=== PATIENT | female | born 1995 | race Caucasian/White ===

== ENCOUNTER → 2018-08-02 | Outpatient (CLI) | payer SELFPAY ==
[2018-08-05 10:06] LABS: CHLAMYDIA TRACHOMATIS, NAA Negative (Negative); NEISSERIA GONORRHOEAE, NAA Negative (Negative)
== END | disposition home or self-care (01) ==
LOC: LAB SHORT 11:00 → LAB 11:00
PROVIDERS: Family Medicine
DX: N92.6 Irregular menstruation, unspecified (principal); N92.0 Excessive and frequent menstruation with regular cycle
CPT/HCPCS: 87086; 87491; 87591

== ENCOUNTER 2018-10-13 16:49 | Emergency (ER) | payer BC ==
[~2018-10-13] VITALS: Ht 147.3 cm; Wt 46.3 kg
[2018-10-13] MEDS ORDERED: ESCI20 PO (17:13)
[2018-10-13 17:31] LABS: BASOPHILS ABSOLUTE AUTO 0.08 K/mm3 (0.00-0.23); BASOPHILS PERCENT AUTO 1 % (0-2); EOSINOPHILS ABSOLUTE AUTO 0.01 K/mm3 (0.00-0.68); EOSINOPHILS PERCENT AUTO 0 % (0-6); Hemoglobin 14.6 g/dL (11.5-16.0); IMMATURE GRAN ABSOLUTE AUTO 0.06 K/mm3 (0.00-0.10); IMMATURE GRAN PERCENT AUTO 0 % (0-1); LYMPHOCYTES ABSOLUTE AUTO 2.34 K/mm3 (0.84-5.20); LYMPHOCYTES PERCENT AUTO 17 % (21-46); MONOCYTES ABSOLUTE AUTO 0.61 K/mm3 (0.16-1.47); MONOCYTES PERCENT AUTO 4 % (4-13); Mean Corpuscular HGB 28.3 pg (26.0-34.0); Mean Corpuscular Volume 84 fL (80-100); Mean Platelet Volume 10.3 fL (9.1-12.4); NEUTROPHILS ABSOLUTE AUTO 10.93 K/mm3 (1.96-9.15); NEUTROPHILS PERCENT AUTO 78 % (41-73); Platelet Count 265 K/mm3 (150-400); RDW Coefficient Variation 12.1 % (11.7-14.2); RDW Standard Deviation 36.7 fL (35.1-46.3); Red Blood Cell Count 5.15 M/mm3 (3.80-5.20); White Blood Cell Count 14.03 K/mm3 (4.00-11.30)
[2018-10-13 17:49] LABS: Alanine Aminotransfer (ALT/SGP 25 U/L (12-78); Albumin, Blood 3.9 g/dL (3.4-5.0); Albumin/Globulin Ratio 1.2 (0.8-1.8); Alk Phos 58 U/L (50-136); Anion Gap 8 mmol/L (6-16); Aspartate Aminotrans (AST/SGOT 16 U/L (12-37); Bilirubin, Total 0.6 mg/dL (0.1-1.0); Blood Urea Nitrogen 9 mg/dL (8-24); CO2, Blood 26 mmol/L (21-32); Calcium, Blood 9.1 mg/dL (8.5-10.1); Chloride, Blood 102 mmol/L (98-108); Globulin, Blood 3.2 g/dL (2.2-4.0); Glomerular Filtration Rate >60 (60-); Glucose, Blood 88 mg/dL (70-99); Potassium, Blood 3.3 mmol/L (3.5-5.5); Sodium, Blood 136 mmol/L (136-145); Total Protein, Blood 7.1 g/dL (6.4-8.2)
[2018-10-13] MEDS ORDERED: ONDA4ODT MM (19:02)
== END 2018-10-13 19:17 | disposition home or self-care (01) ==
LOC: ER 16:49
PROVIDERS: Physician Assistant
DX: R11.2 Nausea with vomiting, unspecified (principal); Z88.8 Allergy status to other drugs, medicaments and biological substances; Z88.5 Allergy status to narcotic agent; Z79.899 Other long term (current) drug therapy; F17.200 Nicotine dependence, unspecified, uncomplicated
CPT/HCPCS: 36415; 80053; 83690; 85025; 96374; 99284-25; J2405

== ENCOUNTER 2018-10-28 19:46 | Emergency (ER) | payer BC ==
[~2018-10-28] VITALS: Ht 147.3 cm; Wt 45.4 kg
[~2018-10-28 19:46] MED LIST: ESCI20 PO; ONDA4ODT MM
[2018-10-28 20:46] LABS: Source, Urine Clean Catch
[2018-10-28 20:49] LABS: Bilirubin, Urine Neg (Neg); Blood, Urine Neg (Neg); Glucose Qualitative, Urine Neg (Neg); Ketones, Urine 1+ (Neg); Leukocyte Esterase, Urine 2+ (Neg); Nitrite, Urine Neg (Neg); Protein, Urine Neg (Neg); Specific Gravity, Urine 1.025 (1.003-1.022); Urobilinogen, Urine NORM (Normal)
[2018-10-28 20:54] LABS: Appearance, Urine Clear (Clear); Color, Urine Yellow (P-Yellow); Red Blood Cells, Urine 0-2 /hpf (0-2)
[2018-10-28 20:55] LABS: Bacteria Many /hpf; Mucus Light (0-Heavy); Squamous Epithelial Cells Few /hpf (Few)
[2018-10-28 21:25] LABS: BASOPHILS ABSOLUTE AUTO 0.08 K/mm3 (0.00-0.23); BASOPHILS PERCENT AUTO 1 % (0-2); EOSINOPHILS ABSOLUTE AUTO 0.08 K/mm3 (0.00-0.68); EOSINOPHILS PERCENT AUTO 1 % (0-6); Hematocrit 39.1 % (33.0-51.0); Hemoglobin 13.3 g/dL (11.5-16.0); IMMATURE GRAN ABSOLUTE AUTO 0.05 K/mm3 (0.00-0.10); IMMATURE GRAN PERCENT AUTO 0 % (0-1); LYMPHOCYTES PERCENT AUTO 25 % (21-46); MONOCYTES ABSOLUTE AUTO 0.89 K/mm3 (0.16-1.47); MONOCYTES PERCENT AUTO 6 % (4-13); Mean Corpuscular HGB 28.3 pg (26.0-34.0); Mean Corpuscular Volume 83 fL (80-100); Mean Platelet Volume 10.2 fL (9.1-12.4); NEUTROPHILS PERCENT AUTO 67 % (41-73); Platelet Count 267 K/mm3 (150-400); RDW Standard Deviation 36.5 fL (35.1-46.3)
[2018-10-28 21:42] LABS: Alanine Aminotransfer (ALT/SGP 19 U/L (12-78); Albumin, Blood 3.5 g/dL (3.4-5.0); Albumin/Globulin Ratio 1.1 (0.8-1.8); Alk Phos 61 U/L (50-136); Anion Gap 8 mmol/L (6-16); Aspartate Aminotrans (AST/SGOT 8 U/L (12-37); Bilirubin, Total 0.3 mg/dL (0.1-1.0); Blood Urea Nitrogen 8 mg/dL (8-24); Bun/Creatinine Ratio 17.2 (12.0-20.0); CO2, Blood 27 mmol/L (21-32); Chloride, Blood 104 mmol/L (98-108); Creatinine, Blood 0.47 mg/dL (0.40-1.00); Globulin, Blood 3.3 g/dL (2.2-4.0); Glomerular Filtration Rate >60 (60-); Glucose, Blood 91 mg/dL (70-99); Potassium, Blood 3.4 mmol/L (3.5-5.5); Sodium, Blood 139 mmol/L (136-145); Total Protein, Blood 6.8 g/dL (6.4-8.2)
[2018-10-28] MEDS ORDERED: ONDA4ODT MM (22:26)
[2018-10-28] MEDS ORDERED: CEPH500 PO (22:26)
== END 2018-10-28 22:54 | disposition home or self-care (01) ==
LOC: ER 19:46
PROVIDERS: Emergency Medicine
DX: O20.0 Threatened abortion (principal); O23.41 Unspecified infection of urinary tract in pregnancy, first trimester; O99.331 Smoking (tobacco) complicating pregnancy, first trimester; F17.200 Nicotine dependence, unspecified, uncomplicated; O99.111 Other diseases of the blood and blood-forming organs and certain disorders involving the immune mechanism complicating pregnancy, first trimester; D72.829 Elevated white blood cell count, unspecified; Z88.5 Allergy status to narcotic agent; Z88.8 Allergy status to other drugs, medicaments and biological substances; Z91.018 Allergy to other foods; Z3A.01 Less than 8 weeks gestation of pregnancy
CPT/HCPCS: 76801; 80053; 81001; 81025; 83690; 84702; 85025; 86900; 86901; 87086; 99284-25

== ENCOUNTER 2018-10-31 20:54 | Emergency (ER) | payer BC ==
[~2018-10-31] VITALS: Ht 147.3 cm; Wt 45.4 kg
[~2018-10-31 20:54] MED LIST changes: +CEPH500 PO
== END 2018-10-31 22:15 | disposition home or self-care (01) ==
LOC: ER 20:54
DX: O20.0 Threatened abortion (principal); J45.909 Unspecified asthma, uncomplicated; F17.200 Nicotine dependence, unspecified, uncomplicated; Z3A.01 Less than 8 weeks gestation of pregnancy
CPT/HCPCS: 36415; 84702; 99283

== ENCOUNTER 2018-11-13 18:42 | Observation (INO) | payer BC ==
[~2018-11-13] VITALS: Ht 147.3 cm; Wt 40.6 kg
[2018-11-13 19:54] LABS: BASOPHILS ABSOLUTE AUTO 0.02 K/mm3 (0.00-0.23); BASOPHILS PERCENT AUTO 0 % (0-2); EOSINOPHILS ABSOLUTE AUTO 0.01 K/mm3 (0.00-0.68); EOSINOPHILS PERCENT AUTO 0 % (0-6); Hematocrit 38.6 % (33.0-51.0); Hemoglobin 13.5 g/dL (11.5-16.0); IMMATURE GRAN ABSOLUTE AUTO 0.08 K/mm3 (0.00-0.10); IMMATURE GRAN PERCENT AUTO 0 % (0-1); LYMPHOCYTES ABSOLUTE AUTO 3.04 K/mm3 (0.84-5.20); LYMPHOCYTES PERCENT AUTO 17 % (21-46); MONOCYTES ABSOLUTE AUTO 1.28 K/mm3 (0.16-1.47); MONOCYTES PERCENT AUTO 7 % (4-13); Mean Corpuscular Volume 80 fL (80-100); Mean Platelet Volume 10.1 fL (9.1-12.4); NEUTROPHILS ABSOLUTE AUTO 13.72 K/mm3 (1.96-9.15); NEUTROPHILS PERCENT AUTO 76 % (41-73); Platelet Count 287 K/mm3 (150-400); RDW Standard Deviation 34.7 fL (35.1-46.3); Red Blood Cell Count 4.83 M/mm3 (3.80-5.20); White Blood Cell Count 18.15 K/mm3 (4.00-11.30)
[2018-11-13 20:20] LABS: Alanine Aminotransfer (ALT/SGP 22 U/L (12-78); Albumin, Blood 3.6 g/dL (3.4-5.0); Alk Phos 49 U/L (50-136); Anion Gap 12 mmol/L (6-16); Aspartate Aminotrans (AST/SGOT 16 U/L (12-37); Bilirubin, Total 0.6 mg/dL (0.1-1.0); Blood Urea Nitrogen 11 mg/dL (8-24); Bun/Creatinine Ratio 24.1 (12.0-20.0); CO2, Blood 20 mmol/L (21-32); Calcium, Blood 9.4 mg/dL (8.5-10.1); Chloride, Blood 100 mmol/L (98-108); Creatinine, Blood 0.46 mg/dL (0.40-1.00); Globulin, Blood 3.6 g/dL (2.2-4.0); Glomerular Filtration Rate >60 (60-); Glucose, Blood 91 mg/dL (70-99); Potassium, Blood 3.5 mmol/L (3.5-5.5); Sodium, Blood 132 mmol/L (136-145); Total Protein, Blood 7.2 g/dL (6.4-8.2)
[2018-11-13 20:44] LABS: Beta HCG, Quantitative, Serum 106614 mIU/mL (0-3)
[2018-11-13 23:39] LABS: Source, Urine Clean Catch
[2018-11-13 23:52] LABS: Bilirubin, Urine Neg (Neg); Blood, Urine 1+ (Neg); Glucose Qualitative, Urine Neg (Neg); Ketones, Urine 4+ (Neg); Leukocyte Esterase, Urine 1+ (Neg); Nitrite, Urine Neg (Neg); Protein, Urine 2+ (Neg); Specific Gravity, Urine 1.025 (1.003-1.022); Urobilinogen, Urine 1+ (Normal); pH, Urine 6.5 (5.0-8.0)
[2018-11-14 00:07] LABS: Appearance, Urine Hazy (Clear); Color, Urine Amber (P-Yellow)
[2018-11-14 00:08] LABS: Amorphous Light ({null, 0-Heavy}); Bacteria Many /hpf; Mucus Light ({null, 0-Heavy}); Red Blood Cells, Urine 0-2 /hpf (0-2); Squamous Epithelial Cells Mod /hpf (Few)
--- NOTE | 2018-11-14 07:32 | NUR ---
SHIFT SUMMARY NEW ADMIT THIS AM. NAUSEA CONTROLLED WITH X1 6.25MG IV PHENERGAN, NO EMESIS SINCE ADMISSION TO FLOOR. INDEPENDENT IN ROOM. TOLERATING CLEAR LIQUIDS. PT RESTING WELL THIS AM. DR Andiry VERA IN TO SEE PT THIS AM. NEW ORDERS OBTAINED. SIGNIFICANT OTHER AT BEDSIDE. PT ORIENTED TO ROOM + CALL LIGHT USE. RESTING AT THIS TIME, MITA, CALL LIGHT IN REACH. REPORT TO DAY SHIFT RN.
--- NOTE | 2018-11-14 18:28 | NUR ---
ASSUMED CARE OF PATIENT AT APPROX 1630. PATIENT TOLERATED TOAST W/O N/V. SLEEPING AT THIS TIME. SPOUSE IN ROOM.
[2018-11-15 04:44] LABS: BASOPHILS ABSOLUTE AUTO 0.04 K/mm3 (0.00-0.23); BASOPHILS PERCENT AUTO 0 % (0-2); EOSINOPHILS ABSOLUTE AUTO 0.09 K/mm3 (0.00-0.68); EOSINOPHILS PERCENT AUTO 1 % (0-6); Hematocrit 30.9 % (33.0-51.0); Hemoglobin 10.5 g/dL (11.5-16.0); IMMATURE GRAN ABSOLUTE AUTO 0.04 K/mm3 (0.00-0.10); IMMATURE GRAN PERCENT AUTO 0 % (0-1); LYMPHOCYTES ABSOLUTE AUTO 4.16 K/mm3 (0.84-5.20); LYMPHOCYTES PERCENT AUTO 36 % (21-46); MONOCYTES ABSOLUTE AUTO 0.84 K/mm3 (0.16-1.47); MONOCYTES PERCENT AUTO 7 % (4-13); Mean Corpuscular HGB 28.2 pg (26.0-34.0); Mean Platelet Volume 10.2 fL (9.1-12.4); NEUTROPHILS ABSOLUTE AUTO 6.44 K/mm3 (1.96-9.15); NEUTROPHILS PERCENT AUTO 56 % (41-73); Platelet Count 183 K/mm3 (150-400); RDW Coefficient Variation 12.2 % (11.7-14.2); RDW Standard Deviation 37.2 fL (35.1-46.3); Red Blood Cell Count 3.73 M/mm3 (3.80-5.20); White Blood Cell Count 11.61 K/mm3 (4.00-11.30)
[2018-11-15 04:47] LABS: Mean Corpuscular Volume 83 fL (80-100)
[2018-11-15 05:08] LABS: Alanine Aminotransfer (ALT/SGP 17 U/L (12-78); Albumin, Blood 2.5 g/dL (3.4-5.0); Alk Phos 42 U/L (50-136); Aspartate Aminotrans (AST/SGOT 10 U/L (12-37); Bilirubin, Total 0.2 mg/dL (0.1-1.0); Blood Urea Nitrogen 7 mg/dL (8-24); Bun/Creatinine Ratio 15.2 (12.0-20.0); CO2, Blood 22 mmol/L (21-32); Calcium, Blood 8.1 mg/dL (8.5-10.1); Chloride, Blood 111 mmol/L (98-108); Creatinine, Blood 0.46 mg/dL (0.40-1.00); Globulin, Blood 2.5 g/dL (2.2-4.0); Glomerular Filtration Rate >60 (60-); Glucose, Blood 81 mg/dL (70-99); Potassium, Blood 3.5 mmol/L (3.5-5.5)
[2018-11-15 05:17] LABS: Anion Gap 9 mmol/L (6-16); Sodium, Blood 142 mmol/L (136-145)
--- NOTE | 2018-11-15 06:45 | NUR ---
SUMMARY: ADMIT DAY [address] JOSI VERA. VSS, AFEBRILE. PT SHOWERED AND TOLERATED REG DIET THIS SHIFT AND DESPITE RN EDUCATION WENT OUT TO SMOKE CIGGARETTE WITH SPOUSE. PT BECAME MINIMALLY NAUSEATED AFTER WARDS AND NAUSEA WAS WELL CONTROLLED WITH 12.5MG PHENERGAN X1. PT SLEPT WELL, VOIDING AND CONTINUE IV FLUID INFUSION. ANTICIPATE DC HOME LATER THIS DAY.
[2018-11-15] MEDS ORDERED: OMEP20ER PO (12:03)
[2018-11-15] MEDS ORDERED: Promethazine12.5 M1 PO (13:29)
--- NOTE | 2018-11-15 14:50 | NUR ---
PT HAS DENIED ANY NAUSEA, REPORTS TOLERATING SOME BITES OF HOT DOG AND CEREAL AND SOME FLUIDS, AMBULATED OUTSIDE TO SMOKE, DC'D HOME ORDERED, DC INSTRUCTIONS GIVEN, VERBALIZED UNDERSTANDING, SMOKING CESSATION INFO GIVEN.
== END 2018-11-15 14:50 | disposition home or self-care (01) ==
LOC: ER 18:42 → SURS 18:43
PROVIDERS: Physician Assistant; ADMIT Obstetrics & Gynecology
DX: O21.0 Mild hyperemesis gravidarum (principal); O99.331 Smoking (tobacco) complicating pregnancy, first trimester; F17.200 Nicotine dependence, unspecified, uncomplicated; Z88.5 Allergy status to narcotic agent; Z91.018 Allergy to other foods; Z3A.09 9 weeks gestation of pregnancy
CPT/HCPCS: 36415; 80053; 81001; 83690; 84702; 85025; 87086; 96361; 96365; 96375; 96376; 99284; C9113; G0378; J0696; J2405; J2550; J3480; J7030

== ENCOUNTER → 2018-11-19 | Outpatient (CLI) | payer BC ==
[~2018-11-19] MED LIST changes: +Lactated Ringe500 M1 IV; +OMEP20ER PO; +Ondansetron Odt8 MG PO; +Promethazine12.5 M1 PO; +[UNRECOGNIZED DRUG - OTHER] PO
[2018-11-19 13:08] LABS: Source, Urine Clean Catch
[2018-11-19 13:20] LABS: Bilirubin, Urine Neg (Neg); Blood, Urine Neg (Neg); Glucose Qualitative, Urine Neg (Neg); Ketones, Urine Neg (Neg); Leukocyte Esterase, Urine Neg (Neg); Nitrite, Urine Neg (Neg); Protein, Urine Neg (Neg); Specific Gravity, Urine 1.015 (1.003-1.022); Urobilinogen, Urine NORM (Normal)
[2018-11-19 13:26] LABS: Appearance, Urine Clear (Clear); Color, Urine Yellow (P-Yellow)
== END | disposition home or self-care (01) ==
LOC: LAB 10:00 → LAB SHORT 10:00
PROVIDERS: Advanced Practice Midwife
DX: Z34.00 Encounter for supervision of normal first pregnancy, unspecified trimester (principal)
CPT/HCPCS: 81003; 87086

== ENCOUNTER → 2018-11-27 | Outpatient (CLI) | payer BC ==
[2018-11-30 04:06] LABS: CHLAMYDIA TRACHOMATIS, NAA Negative (Negative); NEISSERIA GONORRHOEAE, NAA Negative (Negative)
== END ==
LOC: LAB 13:46 → LAB SHORT 13:46
PROVIDERS: Registered Nurse Community Health
DX: Z11.3 Encounter for screening for infections with a predominantly sexual mode of transmission (principal)
CPT/HCPCS: 87491; 87591

== ENCOUNTER 2018-12-04 22:02 | Emergency (ER) | payer BC ==
[~2018-12-04] VITALS: Ht 149.9 cm; Wt 41.7 kg
[~2018-12-04 22:02] MED LIST changes: -Lactated Ringe500 M1 IV; -Ondansetron Odt8 MG PO; -[UNRECOGNIZED DRUG - OTHER] PO
[2018-12-04 22:34] LABS: BASOPHILS ABSOLUTE AUTO 0.02 K/mm3 (0.00-0.23); BASOPHILS PERCENT AUTO 0 % (0-2); EOSINOPHILS PERCENT AUTO 0 % (0-6); Hematocrit 38.6 % (33.0-51.0); Hemoglobin 13.4 g/dL (11.5-16.0); IMMATURE GRAN ABSOLUTE AUTO 0.04 K/mm3 (0.00-0.10); IMMATURE GRAN PERCENT AUTO 0 % (0-1); LYMPHOCYTES ABSOLUTE AUTO 1.65 K/mm3 (0.84-5.20); LYMPHOCYTES PERCENT AUTO 13 % (21-46); MONOCYTES ABSOLUTE AUTO 0.48 K/mm3 (0.16-1.47); MONOCYTES PERCENT AUTO 4 % (4-13); Mean Corpuscular HGB 28.1 pg (26.0-34.0); Mean Corpuscular HGB Conc 34.7 g/dL (31.5-36.5); Mean Corpuscular Volume 81 fL (80-100); Mean Platelet Volume 10.2 fL (9.1-12.4); NEUTROPHILS ABSOLUTE AUTO 10.18 K/mm3 (1.96-9.15); NEUTROPHILS PERCENT AUTO 82 % (41-73); Platelet Count 265 K/mm3 (150-400); RDW Coefficient Variation 12.2 % (11.7-14.2); RDW Standard Deviation 36.5 fL (35.1-46.3); Red Blood Cell Count 4.77 M/mm3 (3.80-5.20); White Blood Cell Count 12.37 K/mm3 (4.00-11.30)
[2018-12-04 22:53] LABS: Alanine Aminotransfer (ALT/SGP 23 U/L (12-78); Albumin, Blood 3.7 g/dL (3.4-5.0); Albumin/Globulin Ratio 0.9 (0.8-1.8); Alk Phos 54 U/L (50-136); Anion Gap 15 mmol/L (6-16); Aspartate Aminotrans (AST/SGOT 20 U/L (12-37); Bilirubin, Total 0.7 mg/dL (0.1-1.0); Blood Urea Nitrogen 8 mg/dL (8-24); Bun/Creatinine Ratio 17.2 (12.0-20.0); CO2, Blood 17 mmol/L (21-32); Calcium, Blood 9.8 mg/dL (8.5-10.1); Chloride, Blood 103 mmol/L (98-108); Creatinine, Blood 0.47 mg/dL (0.40-1.00); Globulin, Blood 3.9 g/dL (2.2-4.0); Glomerular Filtration Rate >60 (60-); Glucose, Blood 87 mg/dL (70-99); Potassium, Blood 3.7 mmol/L (3.5-5.5); Sodium, Blood 135 mmol/L (136-145); Total Protein, Blood 7.6 g/dL (6.4-8.2)
[2018-12-05] MEDS ORDERED: Ondansetron Odt8 MG PO (02:02)
== END 2018-12-05 03:06 | disposition home or self-care (01) ==
LOC: ER 22:02
PROVIDERS: Emergency Medicine
DX: O21.0 Mild hyperemesis gravidarum (principal); O99.331 Smoking (tobacco) complicating pregnancy, first trimester; F17.200 Nicotine dependence, unspecified, uncomplicated; Z88.5 Allergy status to narcotic agent; Z91.018 Allergy to other foods; Z3A.10 10 weeks gestation of pregnancy
CPT/HCPCS: 36415; 80053; 85025; 96361; 96374; 99283; J2405; J7030

== ENCOUNTER 2019-01-01 00:03 | Day surgery (SDC) | payer BC ==
[~2019-01-01 00:03] MED LIST changes: +Ondansetron Odt8 MG PO
[2019-01-01] MEDS ORDERED: [UNRECOGNIZED DRUG - OTHER] PO (10:13)
[2019-01-01] MEDS ORDERED: Lactated Ringe500 M1 IV (10:15)
--- NOTE | 2019-01-01 12:02 | NUR ---
PT REFUSED FULL BAG OF LR'S, ONLY RECEIVED APPROX 800 ML.
== END 2019-01-01 23:55 | disposition home or self-care (01) ==
LOC: ATC 00:03
DX: O21.0 Mild hyperemesis gravidarum (principal); Z88.5 Allergy status to narcotic agent; Z88.8 Allergy status to other drugs, medicaments and biological substances
CPT/HCPCS: 96361; 96365; 96375; J2405; J3411; J3475; J7042; J7120

== ENCOUNTER 2019-01-12 13:49 | Day surgery (SDC) | payer BC ==
[~2019-01-12 13:49] MED LIST changes: +Lactated Ringe500 M1 IV; +[UNRECOGNIZED DRUG - OTHER] PO
== END 2019-01-12 15:24 | disposition home or self-care (01) ==
LOC: ATC 13:49
DX: O21.0 Mild hyperemesis gravidarum (principal); O99.330 Smoking (tobacco) complicating pregnancy, unspecified trimester; O99.320 Drug use complicating pregnancy, unspecified trimester; O99.340 Other mental disorders complicating pregnancy, unspecified trimester; O99.350 Diseases of the nervous system complicating pregnancy, unspecified trimester; O99.619 Diseases of the digestive system complicating pregnancy, unspecified trimester; O99.519 Diseases of the respiratory system complicating pregnancy, unspecified trimester; O99.89 Other specified diseases and conditions complicating pregnancy, childbirth and the puerperium; F17.210 Nicotine dependence, cigarettes, uncomplicated; F12.90 Cannabis use, unspecified, uncomplicated; F41.1 Generalized anxiety disorder; F98.8 Other specified behavioral and emotional disorders with onset usually occurring in childhood and adolescence; K21.9 Gastro-esophageal reflux disease without esophagitis; M54.9 Dorsalgia, unspecified; J45.909 Unspecified asthma, uncomplicated; G43.909 Migraine, unspecified, not intractable, without status migrainosus; F32.9 Major depressive disorder, single episode, unspecified; M54.5 Low back pain; Z79.899 Other long term (current) drug therapy; Z88.5 Allergy status to narcotic agent; Z88.8 Allergy status to other drugs, medicaments and biological substances; Z91.018 Allergy to other foods; Z3A.00 Weeks of gestation of pregnancy not specified
CPT/HCPCS: J2405; J7120

== ENCOUNTER 2019-01-28 00:13 | Day surgery (SDC) | payer BC | END 2019-01-28 17:02 | disposition home or self-care (01) | LOC: ATC 00:13 | DX: O21.0 Mild hyperemesis gravidarum (principal); O99.320 Drug use complicating pregnancy, unspecified trimester; O99.330 Smoking (tobacco) complicating pregnancy, unspecified trimester; O99.340 Other mental disorders complicating pregnancy, unspecified trimester; O99.619 Diseases of the digestive system complicating pregnancy, unspecified trimester; O99.519 Diseases of the respiratory system complicating pregnancy, unspecified trimester; O99.89 Other specified diseases and conditions complicating pregnancy, childbirth and the puerperium; O99.350 Diseases of the nervous system complicating pregnancy, unspecified trimester; F12.20 Cannabis dependence, uncomplicated; F17.210 Nicotine dependence, cigarettes, uncomplicated; F41.1 Generalized anxiety disorder; F41.8 Other specified anxiety disorders; K21.9 Gastro-esophageal reflux disease without esophagitis; G89.29 Other chronic pain; M21.40 Flat foot [pes planus] (acquired), unspecified foot; J45.909 Unspecified asthma, uncomplicated; G43.909 Migraine, unspecified, not intractable, without status migrainosus; F98.8 Other specified behavioral and emotional disorders with onset usually occurring in childhood and adolescence; M54.5 Low back pain; Z79.899 Other long term (current) drug therapy; Z88.5 Allergy status to narcotic agent; Z91.018 Allergy to other foods | CPT/HCPCS: 96361; 96365; 96375; J2405; J3411; J3475; J7042; J7120 ==

== ENCOUNTER 2019-02-13 19:47 | Emergency (ER) | payer BC ==
[~2019-02-13] VITALS: Ht 149.9 cm; Wt 43.1 kg
[2019-02-13 20:42] LABS: BASOPHILS ABSOLUTE AUTO 0.03 K/mm3 (0.00-0.23); BASOPHILS PERCENT AUTO 0 % (0-2); EOSINOPHILS ABSOLUTE AUTO 0.07 K/mm3 (0.00-0.68); EOSINOPHILS PERCENT AUTO 1 % (0-6); Hematocrit 32.9 % (33.0-51.0); Hemoglobin 10.9 g/dL (11.5-16.0); IMMATURE GRAN ABSOLUTE AUTO 0.06 K/mm3 (0.00-0.10); IMMATURE GRAN PERCENT AUTO 1 % (0-1); LYMPHOCYTES ABSOLUTE AUTO 2.57 K/mm3 (0.84-5.20); LYMPHOCYTES PERCENT AUTO 25 % (21-46); MONOCYTES PERCENT AUTO 8 % (4-13); Mean Corpuscular HGB 28.7 pg (26.0-34.0); Mean Corpuscular HGB Conc 33.1 g/dL (31.5-36.5); Mean Corpuscular Volume 87 fL (80-100); Mean Platelet Volume 10.1 fL (9.1-12.4); NEUTROPHILS ABSOLUTE AUTO 6.89 K/mm3 (1.96-9.15); NEUTROPHILS PERCENT AUTO 66 % (41-73); Platelet Count 256 K/mm3 (150-400); RDW Coefficient Variation 13.1 % (11.7-14.2); RDW Standard Deviation 41.4 fL (35.1-46.3); White Blood Cell Count 10.42 K/mm3 (4.00-11.30)
[2019-02-13 21:04] LABS: Alanine Aminotransfer (ALT/SGP 39 U/L (12-78); Albumin, Blood 3.3 g/dL (3.4-5.0); Albumin/Globulin Ratio 0.8 (0.8-1.8); Alk Phos 57 U/L (50-136); Anion Gap 8 mmol/L (6-16); Aspartate Aminotrans (AST/SGOT 27 U/L (12-37); Bilirubin, Total 0.5 mg/dL (0.1-1.0); Blood Urea Nitrogen 8 mg/dL (8-24); Bun/Creatinine Ratio 20.8 (12.0-20.0); CO2, Blood 24 mmol/L (21-32); Chloride, Blood 102 mmol/L (98-108); Creatinine, Blood 0.39 mg/dL (0.40-1.00); Globulin, Blood 3.9 g/dL (2.2-4.0); Glomerular Filtration Rate >60 (60-); Glucose, Blood 76 mg/dL (70-99); Potassium, Blood 3.4 mmol/L (3.5-5.5); Sodium, Blood 134 mmol/L (136-145); Total Protein, Blood 7.2 g/dL (6.4-8.2)
[2019-02-13 21:18] LABS: Beta HCG, Quantitative, Serum 37912 mIU/mL (0-3)
[2019-02-13 21:47] LABS: Source, Urine Clean Catch
[2019-02-13 21:52] LABS: Appearance, Urine Hazy (Clear); Bilirubin, Urine Neg (Neg); Blood, Urine Neg (Neg); Color, Urine Yellow (P-Yellow); Glucose Qualitative, Urine Neg (Neg); Ketones, Urine 4+ (Neg); Leukocyte Esterase, Urine 3+ (Neg); Nitrite, Urine Neg (Neg); Protein, Urine 1+ (Neg); Specific Gravity, Urine 1.015 (1.003-1.022); Urobilinogen, Urine 1+ (Normal); pH, Urine 6.5 (5.0-8.0)
[2019-02-13 22:04] LABS: Bacteria Many /hpf; Red Blood Cells, Urine Not Seen /hpf (0-2); Squamous Epithelial Cells Many /hpf (Few); White Blood Cells, Urine 25-50 /hpf (0-5)
[2019-02-13] MEDS ORDERED: CEPH500 PO (22:50)
== END 2019-02-13 23:02 | disposition home or self-care (01) ==
LOC: ER 19:47
PROVIDERS: Physician Assistant
DX: O23.42 Unspecified infection of urinary tract in pregnancy, second trimester (principal); Z3A.22 22 weeks gestation of pregnancy; Z88.5 Allergy status to narcotic agent; Z91.018 Allergy to other foods; Z87.891 Personal history of nicotine dependence
CPT/HCPCS: 36415; 76815; 80053; 81001; 84702; 85025; 86900; 86901; 87086; 96365; 99284-25; J0696

== ENCOUNTER 2020-05-27 13:57 | Emergency (ER) | payer BC, OTHER ==
[~2020-05-27] VITALS: Ht 144.8 cm; Wt 52.2 kg
[2020-05-27 14:27] LABS: BASOPHILS ABSOLUTE AUTO 0.06 K/mm3 (0.00-0.23); BASOPHILS PERCENT AUTO 0 % (0-2); EOSINOPHILS ABSOLUTE AUTO 0.01 K/mm3 (0.00-0.68); EOSINOPHILS PERCENT AUTO 0 % (0-6); Hematocrit 48.8 % (33.0-51.0); Hemoglobin 16.6 g/dL (11.5-16.0); IMMATURE GRAN ABSOLUTE AUTO 0.11 K/mm3 (0.00-0.10); IMMATURE GRAN PERCENT AUTO 1 % (0-1); LYMPHOCYTES PERCENT AUTO 13 % (21-46); MONOCYTES ABSOLUTE AUTO 0.88 K/mm3 (0.16-1.47); MONOCYTES PERCENT AUTO 5 % (4-13); Mean Corpuscular HGB 28.4 pg (26.0-34.0); Mean Corpuscular Volume 84 fL (80-100); Mean Platelet Volume 10.3 fL (9.1-12.4); NEUTROPHILS ABSOLUTE AUTO 14.19 K/mm3 (1.96-9.15); NEUTROPHILS PERCENT AUTO 81 % (41-73); Platelet Count 356 K/mm3 (150-400); RDW Coefficient Variation 12.2 % (11.7-14.2); Red Blood Cell Count 5.84 M/mm3 (3.80-5.20); White Blood Cell Count 17.55 K/mm3 (4.00-11.30)
[2020-05-27 14:54] LABS: Alanine Aminotransfer (ALT/SGP 29 U/L (12-78); Albumin, Blood 4.3 g/dL (3.4-5.0); Alk Phos 73 U/L (50-136); Anion Gap 12 mmol/L (6-16); Aspartate Aminotrans (AST/SGOT 17 U/L (12-37); Bilirubin, Total 0.7 mg/dL (0.1-1.0); Blood Urea Nitrogen 9 mg/dL (8-24); Bun/Creatinine Ratio 14.7 (12.0-20.0); CO2, Blood 19 mmol/L (21-32); Calcium, Blood 9.7 mg/dL (8.5-10.1); Chloride, Blood 103 mmol/L (98-108); Creatinine, Blood 0.61 mg/dL (0.40-1.00); Globulin, Blood 4.1 g/dL (2.2-4.0); Glomerular Filtration Rate >60 (60-); Glucose, Blood 87 mg/dL (70-99); Potassium, Blood 3.5 mmol/L (3.5-5.5); Sodium, Blood 134 mmol/L (136-145); Total Protein, Blood 8.4 g/dL (6.4-8.2)
[2020-05-27 14:57] LABS: Source, Urine Clean Catch
[2020-05-27 15:00] LABS: Appearance, Urine Hazy (Clear); Bilirubin, Urine Neg (Neg); Blood, Urine 4+ (Neg); Color, Urine Yellow (P-Yellow); Glucose Qualitative, Urine Neg (Neg); Ketones, Urine 4+ (Neg); Leukocyte Esterase, Urine 2+ (Neg); Nitrite, Urine Neg (Neg); Protein, Urine 3+ (Neg); Specific Gravity, Urine 1.025 (1.003-1.022); Urobilinogen, Urine NORM (Normal)
[2020-05-27 15:17] LABS: Squamous Epithelial Cells Many /hpf (Few)
[2020-05-27 15:18] LABS: Bacteria Mod /hpf
[2020-05-27] MEDS ORDERED: EFFEXOR XR37.5 MG PO (15:31)
[2020-05-27] MEDS ORDERED: ARIPIPRAZOLE2 M1 PO (15:31)
[2020-05-27] MEDS ORDERED: LORAZEPAM0.5 MG PO (16:06)
[2020-05-27] MEDS ORDERED: PHENERGAN25 MG PR (17:14)
[2020-05-27] MEDS ORDERED: Protonix40 MG PO (17:14)
[2020-05-27] MEDS ORDERED: PROM25 PO (17:14)
[2020-05-27] MEDS ORDERED: CEFD300 PO (17:14)
== END 2020-05-27 17:36 | disposition home or self-care (01) ==
LOC: ER 13:57
PROVIDERS: Physician Assistant
DX: O23.01 Infections of kidney in pregnancy, first trimester (principal); O21.8 Other vomiting complicating pregnancy; O26.851 Spotting complicating pregnancy, first trimester; O34.81 Maternal care for other abnormalities of pelvic organs, first trimester; N83.201 Unspecified ovarian cyst, right side; O26.891 Other specified pregnancy related conditions, first trimester; D72.829 Elevated white blood cell count, unspecified; J45.909 Unspecified asthma, uncomplicated; K21.9 Gastro-esophageal reflux disease without esophagitis; Z88.5 Allergy status to narcotic agent; Z88.8 Allergy status to other drugs, medicaments and biological substances; Z91.018 Allergy to other foods; Z79.899 Other long term (current) drug therapy; Z87.891 Personal history of nicotine dependence; Z3A.01 Less than 8 weeks gestation of pregnancy
CPT/HCPCS: 36415; 76801; 76817; 80053; 81001; 81025; 83690; 84702; 84703; 85025; 86850; 86900; 86901; 87086; 96361; 96365; 96375; 96376; 99284-25; C9113; J0696; J2550; J7120

== ENCOUNTER 2020-06-07 20:16 | Emergency (ER) | payer BC, OTHER ==
[~2020-06-07] VITALS: Ht 144.8 cm; Wt 49.9 kg
[~2020-06-07 20:16] MED LIST changes: +ARIPIPRAZOLE2 M1 PO; +CEFD300 PO; +EFFEXOR XR37.5 MG PO; +LORAZEPAM0.5 MG PO; +PHENERGAN25 MG PR; +PROM25 PO; +Protonix40 MG PO
[2020-06-07 20:52] LABS: BASOPHILS ABSOLUTE AUTO 0.05 K/mm3 (0.00-0.23); BASOPHILS PERCENT AUTO 0 % (0-2); EOSINOPHILS ABSOLUTE AUTO 0.01 K/mm3 (0.00-0.68); EOSINOPHILS PERCENT AUTO 0 % (0-6); Hematocrit 43.6 % (33.0-51.0); Hemoglobin 15.1 g/dL (11.5-16.0); IMMATURE GRAN ABSOLUTE AUTO 0.07 K/mm3 (0.00-0.10); IMMATURE GRAN PERCENT AUTO 0 % (0-1); LYMPHOCYTES ABSOLUTE AUTO 1.83 K/mm3 (0.84-5.20); LYMPHOCYTES PERCENT AUTO 11 % (21-46); MONOCYTES ABSOLUTE AUTO 0.78 K/mm3 (0.16-1.47); MONOCYTES PERCENT AUTO 5 % (4-13); Mean Corpuscular HGB 28.2 pg (26.0-34.0); Mean Corpuscular HGB Conc 34.6 g/dL (31.5-36.5); Mean Corpuscular Volume 81 fL (80-100); Mean Platelet Volume 10.3 fL (9.1-12.4); NEUTROPHILS PERCENT AUTO 84 % (41-73); Platelet Count 339 K/mm3 (150-400); RDW Coefficient Variation 12.1 % (11.7-14.2); RDW Standard Deviation 35.9 fL (35.1-46.3); Red Blood Cell Count 5.36 M/mm3 (3.80-5.20); White Blood Cell Count 16.74 K/mm3 (4.00-11.30)
[2020-06-07 21:11] LABS: Alanine Aminotransfer (ALT/SGP 31 U/L (12-78); Albumin, Blood 3.7 g/dL (3.4-5.0); Alk Phos 58 U/L (50-136); Anion Gap 11 mmol/L (6-16); Aspartate Aminotrans (AST/SGOT 14 U/L (12-37); Bilirubin, Total 0.5 mg/dL (0.1-1.0); Blood Urea Nitrogen 8 mg/dL (8-24); CO2, Blood 21 mmol/L (21-32); Calcium, Blood 9.2 mg/dL (8.5-10.1); Chloride, Blood 104 mmol/L (98-108); Creatinine, Blood 0.45 mg/dL (0.40-1.00); Globulin, Blood 3.8 g/dL (2.2-4.0); Glomerular Filtration Rate >60 (60-); Glucose, Blood 85 mg/dL (70-99); Potassium, Blood 3.6 mmol/L (3.5-5.5); Sodium, Blood 136 mmol/L (136-145); Total Protein, Blood 7.5 g/dL (6.4-8.2)
[2020-06-08 02:55] LABS: Source, Urine Clean Catch
[2020-06-08 02:57] LABS: Appearance, Urine Clear (Clear); Bilirubin, Urine Neg (Neg); Blood, Urine Neg (Neg); Color, Urine Yellow (P-Yellow); Glucose Qualitative, Urine Neg (Neg); Ketones, Urine 4+ (Neg); Leukocyte Esterase, Urine 2+ (Neg); Nitrite, Urine Neg (Neg); Protein, Urine 1+ (Neg); Specific Gravity, Urine 1.025 (1.003-1.022); Urobilinogen, Urine NORM (Normal)
[2020-06-08 03:02] LABS: Red Blood Cells, Urine 0-2 /hpf (0-2)
[2020-06-08 03:03] LABS: Bacteria Many /hpf; Mucus Light (0-Heavy); Squamous Epithelial Cells Mod /hpf (Few)
[2020-06-08] MEDS ORDERED: CEFP200 PO (03:13)
== END 2020-06-08 03:24 | disposition home or self-care (01) ==
LOC: ER 20:16
PROVIDERS: Physician Assistant
DX: O23.41 Unspecified infection of urinary tract in pregnancy, first trimester (principal); O99.331 Smoking (tobacco) complicating pregnancy, first trimester; F17.200 Nicotine dependence, unspecified, uncomplicated; Z3A.01 Less than 8 weeks gestation of pregnancy; Z88.5 Allergy status to narcotic agent; Z91.018 Allergy to other foods
CPT/HCPCS: 36415; 80053; 81001; 83690; 85025; 87086; 96361; 96374; 99284; A9270; J2405; J7030

== ENCOUNTER → 2020-06-13 | Outpatient (CLI) | payer BC, OTHER ==
[~2020-06-13] MED LIST changes: +CEFP200 PO; +PRED1 PO; +PROM12.5S PR; +PROMETHAZINE12.5 M1 PO
[2020-06-13 13:51] LABS: Source, Urine Clean Catch
[2020-06-13 17:30] LABS: Bilirubin, Urine Neg (Neg); Blood, Urine Neg (Neg); Glucose Qualitative, Urine Neg (Neg); Ketones, Urine Neg (Neg); Leukocyte Esterase, Urine 1+ (Neg); Nitrite, Urine Neg (Neg); Protein, Urine Neg (Neg); Urobilinogen, Urine NORM (Normal); pH, Urine 6.5 (5.0-8.0)
[2020-06-13 18:03] LABS: Appearance, Urine Hazy (Clear); Color, Urine Pale Yellow (P-Yellow)
[2020-06-13 18:04] LABS: Bacteria Few /hpf; Mucus Light (0-Heavy); Red Blood Cells, Urine 0-2 /hpf (0-2); Squamous Epithelial Cells Few /hpf (Few); Transitional Epithelial Cells Rare /hpf (0-Rare)
== END ==
LOC: LAB UCHC 13:42 → LAB SHORT 13:42
PROVIDERS: Registered Nurse Community Health
DX: Z34.92 Encounter for supervision of normal pregnancy, unspecified, second trimester (principal); Z88.5 Allergy status to narcotic agent; Z91.018 Allergy to other foods
CPT/HCPCS: 81001; 87086

== ENCOUNTER 2020-06-19 18:37 | Emergency (ER) | payer BC, OTHER ==
[~2020-06-19] VITALS: Ht 144.8 cm; Wt 47.6 kg
[~2020-06-19 18:37] MED LIST changes: -PRED1 PO; -PROM12.5S PR; -PROMETHAZINE12.5 M1 PO
[2020-06-19 19:28] LABS: BASOPHILS ABSOLUTE AUTO 0.06 K/mm3 (0.00-0.23); BASOPHILS PERCENT AUTO 0 % (0-2); EOSINOPHILS ABSOLUTE AUTO 0.01 K/mm3 (0.00-0.68); EOSINOPHILS PERCENT AUTO 0 % (0-6); Hemoglobin 14.1 g/dL (11.5-16.0); IMMATURE GRAN ABSOLUTE AUTO 0.08 K/mm3 (0.00-0.10); IMMATURE GRAN PERCENT AUTO 1 % (0-1); LYMPHOCYTES ABSOLUTE AUTO 1.71 K/mm3 (0.84-5.20); LYMPHOCYTES PERCENT AUTO 11 % (21-46); MONOCYTES ABSOLUTE AUTO 0.67 K/mm3 (0.16-1.47); MONOCYTES PERCENT AUTO 4 % (4-13); Mean Corpuscular HGB 28.3 pg (26.0-34.0); Mean Corpuscular HGB Conc 34.4 g/dL (31.5-36.5); Mean Corpuscular Volume 82 fL (80-100); NEUTROPHILS ABSOLUTE AUTO 13.13 K/mm3 (1.96-9.15); NEUTROPHILS PERCENT AUTO 84 % (41-73); Platelet Count 285 K/mm3 (150-400); RDW Standard Deviation 36.5 fL (35.1-46.3); Red Blood Cell Count 4.99 M/mm3 (3.80-5.20); White Blood Cell Count 15.66 K/mm3 (4.00-11.30)
[2020-06-19 19:49] LABS: Alanine Aminotransfer (ALT/SGP 27 U/L (12-78); Albumin, Blood 3.7 g/dL (3.4-5.0); Alk Phos 49 U/L (50-136); Anion Gap 9 mmol/L (6-16); Aspartate Aminotrans (AST/SGOT 15 U/L (12-37); Bilirubin, Total 0.6 mg/dL (0.1-1.0); Blood Urea Nitrogen 9 mg/dL (8-24); Bun/Creatinine Ratio 17.2 (12.0-20.0); CO2, Blood 21 mmol/L (21-32); Calcium, Blood 9.3 mg/dL (8.5-10.1); Chloride, Blood 104 mmol/L (98-108); Creatinine, Blood 0.52 mg/dL (0.40-1.00); Globulin, Blood 3.6 g/dL (2.2-4.0); Glomerular Filtration Rate >60 (60-); Glucose, Blood 87 mg/dL (70-99); Potassium, Blood 3.4 mmol/L (3.5-5.5); Sodium, Blood 134 mmol/L (136-145); Total Protein, Blood 7.3 g/dL (6.4-8.2)
[2020-06-19 20:41] LABS: Beta HCG, Quantitative, Serum 81898 mIU/mL (0-3)
[2020-06-19 21:43] LABS: Source, Urine Clean Catch
[2020-06-19 21:54] LABS: Bilirubin, Urine Neg (Neg); Blood, Urine Neg (Neg); Glucose Qualitative, Urine Neg (Neg); Ketones, Urine 4+ (Neg); Leukocyte Esterase, Urine 3+ (Neg); Nitrite, Urine Neg (Neg); Protein, Urine 1+ (Neg); Urobilinogen, Urine NORM (Normal)
[2020-06-19 21:59] LABS: Color, Urine Yellow (P-Yellow)
[2020-06-19 22:01] LABS: Appearance, Urine Clear (Clear)
[2020-06-19 22:02] LABS: Bacteria Mod /hpf; Red Blood Cells, Urine Not Seen /hpf (0-2); Squamous Epithelial Cells Few /hpf (Few)
[2020-06-19] MEDS ORDERED: PROMETHAZINE12.5 M1 PO (22:24)
[2020-06-19] MEDS ORDERED: PROM12.5S PR (22:24)
[2020-06-19] MEDS ORDERED: CEPH500 PO (22:24)
== END 2020-06-19 23:29 | disposition home or self-care (01) ==
LOC: ER 18:37
PROVIDERS: Physician Assistant
DX: O23.41 Unspecified infection of urinary tract in pregnancy, first trimester (principal); O21.9 Vomiting of pregnancy, unspecified; K21.9 Gastro-esophageal reflux disease without esophagitis; F17.200 Nicotine dependence, unspecified, uncomplicated; Z91.018 Allergy to other foods; Z3A.08 8 weeks gestation of pregnancy
CPT/HCPCS: 36415; 76801; 80053; 81001; 84702; 84703; 85025; 86900; 86901; 87086; 93005; 93010; 96361; 96365; 96375; 99284-25; J0696; J2550; J7030

== ENCOUNTER 2020-07-04 00:06 | Day surgery (SDC) | payer BC, OTHER ==
[~2020-07-04 00:06] MED LIST changes: +PROM12.5S PR; +PROMETHAZINE12.5 M1 PO
== END 2020-07-04 14:44 | disposition home or self-care (01) ==
LOC: ATC 00:06
DX: O21.9 Vomiting of pregnancy, unspecified (principal); O99.331 Smoking (tobacco) complicating pregnancy, first trimester; F17.210 Nicotine dependence, cigarettes, uncomplicated; O34.219 Maternal care for unspecified type scar from previous cesarean delivery; Z3A.01 Less than 8 weeks gestation of pregnancy; Z91.018 Allergy to other foods; Z88.5 Allergy status to narcotic agent
CPT/HCPCS: J3411; J3475; J7042; J7120

== ENCOUNTER 2020-07-12 00:27 | Day surgery (SDC) | payer BC, OTHER ==
[2020-07-12] MEDS ORDERED: PRED1 PO (14:08)
== END 2020-07-12 16:01 | disposition home or self-care (01) ==
LOC: ATC 00:27
DX: O21.9 Vomiting of pregnancy, unspecified (principal); Z3A.00 Weeks of gestation of pregnancy not specified; O99.330 Smoking (tobacco) complicating pregnancy, unspecified trimester; F17.210 Nicotine dependence, cigarettes, uncomplicated; Z79.899 Other long term (current) drug therapy
CPT/HCPCS: 96361; 96365; 96375; J2405; J3411; J3475; J7042; J7120

== ENCOUNTER 2020-07-13 00:55 | Day surgery (SDC) | payer BC, OTHER ==
[~2020-07-13 00:55] MED LIST changes: +PRED1 PO
== END 2020-07-13 15:01 | disposition home or self-care (01) ==
LOC: ATC 00:55
DX: O21.9 Vomiting of pregnancy, unspecified (principal); Z3A.00 Weeks of gestation of pregnancy not specified; O99.330 Smoking (tobacco) complicating pregnancy, unspecified trimester; F17.210 Nicotine dependence, cigarettes, uncomplicated; Z79.899 Other long term (current) drug therapy
CPT/HCPCS: 96361; 96374; J2405; J7120

== ENCOUNTER 2020-07-15 01:53 | Day surgery (SDC) | payer BC, OTHER | END 2020-07-15 15:00 | disposition home or self-care (01) | LOC: ATC 01:53 | DX: O21.9 Vomiting of pregnancy, unspecified (principal); O99.330 Smoking (tobacco) complicating pregnancy, unspecified trimester; F17.210 Nicotine dependence, cigarettes, uncomplicated; O34.219 Maternal care for unspecified type scar from previous cesarean delivery; O26.839 Pregnancy related renal disease, unspecified trimester; Q61.00 Congenital renal cyst, unspecified; Z3A.00 Weeks of gestation of pregnancy not specified; Z91.018 Allergy to other foods; Z88.5 Allergy status to narcotic agent; Z87.440 Personal history of urinary (tract) infections; Z87.59 Personal history of other complications of pregnancy, childbirth and the puerperium | CPT/HCPCS: 96361; 96374; J2405; J3411; J3475; J7042; J7120 ==

== ENCOUNTER 2020-07-23 03:21 | Day surgery (SDC) | payer BC, OTHER | END 2020-07-23 16:58 | disposition home or self-care (01) | LOC: ATC 03:21 | DX: O21.9 Vomiting of pregnancy, unspecified (principal); O99.330 Smoking (tobacco) complicating pregnancy, unspecified trimester; F17.210 Nicotine dependence, cigarettes, uncomplicated; O34.219 Maternal care for unspecified type scar from previous cesarean delivery; O26.839 Pregnancy related renal disease, unspecified trimester; Q61.00 Congenital renal cyst, unspecified; Z3A.00 Weeks of gestation of pregnancy not specified; Z88.5 Allergy status to narcotic agent; Z91.018 Allergy to other foods; Z87.440 Personal history of urinary (tract) infections; Z87.59 Personal history of other complications of pregnancy, childbirth and the puerperium | CPT/HCPCS: 96361; 96365; 96375; J2405; J3411; J3475; J7042; J7120 ==

== ENCOUNTER 2020-07-29 00:19 | Day surgery (SDC) | payer BC, OTHER | END 2020-07-29 16:16 | disposition home or self-care (01) | LOC: ATC 00:19 | DX: O21.9 Vomiting of pregnancy, unspecified (principal); O99.330 Smoking (tobacco) complicating pregnancy, unspecified trimester; F17.210 Nicotine dependence, cigarettes, uncomplicated; O99.519 Diseases of the respiratory system complicating pregnancy, unspecified trimester; J45.909 Unspecified asthma, uncomplicated; Z3A.00 Weeks of gestation of pregnancy not specified; Z91.018 Allergy to other foods; Z88.5 Allergy status to narcotic agent | CPT/HCPCS: 96365; 96366; 96375; J2405; J3411; J3475; J7042; J7120 ==

== ENCOUNTER 2020-07-31 00:11 | Day surgery (SDC) | payer BC, OTHER | END 2020-07-31 16:21 | disposition home or self-care (01) | LOC: ATC 00:11 | DX: O21.0 Mild hyperemesis gravidarum (principal); Z3A.00 Weeks of gestation of pregnancy not specified; O99.331 Smoking (tobacco) complicating pregnancy, first trimester; F17.210 Nicotine dependence, cigarettes, uncomplicated; Z88.6 Allergy status to analgesic agent; Z91.018 Allergy to other foods | CPT/HCPCS: 96361; 96365; 96375; J2405; J3411; J3475; J7042; J7120 ==

== ENCOUNTER 2020-08-02 03:14 | Day surgery (SDC) | payer BC, OTHER | END 2020-08-02 16:20 | disposition home or self-care (01) | LOC: ATC 03:14 | DX: R11.2 Nausea with vomiting, unspecified (principal) | CPT/HCPCS: 96361; 96365; 96375; J2405; J3411; J3475; J7042; J7120 ==

== ENCOUNTER 2020-08-04 04:07 | Day surgery (SDC) | payer BC, OTHER | END 2020-08-04 23:07 | disposition home or self-care (01) | LOC: ATC 04:07 | DX: O21.0 Mild hyperemesis gravidarum (principal); O99.331 Smoking (tobacco) complicating pregnancy, first trimester; O99.511 Diseases of the respiratory system complicating pregnancy, first trimester; J45.909 Unspecified asthma, uncomplicated; Z88.8 Allergy status to other drugs, medicaments and biological substances; Z91.018 Allergy to other foods; Z3A.00 Weeks of gestation of pregnancy not specified | CPT/HCPCS: 96361; 96365; 96375; J2405; J3411; J3475; J7042; J7120 ==

== ENCOUNTER 2020-08-06 13:55 | Day surgery (SDC) | payer BC, OTHER | END 2020-08-06 16:20 | disposition home or self-care (01) | LOC: ATC 13:55 | DX: O21.9 Vomiting of pregnancy, unspecified (principal); O99.331 Smoking (tobacco) complicating pregnancy, first trimester; F17.210 Nicotine dependence, cigarettes, uncomplicated; O99.891 Other specified diseases and conditions complicating pregnancy; O99.511 Diseases of the respiratory system complicating pregnancy, first trimester; J45.909 Unspecified asthma, uncomplicated; O99.321 Drug use complicating pregnancy, first trimester; F12.90 Cannabis use, unspecified, uncomplicated; O98.311 Other infections with a predominantly sexual mode of transmission complicating pregnancy, first trimester; A60.00 Herpesviral infection of urogenital system, unspecified; N28.1 Cyst of kidney, acquired; Z3A.00 Weeks of gestation of pregnancy not specified; Z88.5 Allergy status to narcotic agent; Z91.018 Allergy to other foods; Z87.440 Personal history of urinary (tract) infections; Z87.59 Personal history of other complications of pregnancy, childbirth and the puerperium; Z88.8 Allergy status to other drugs, medicaments and biological substances | CPT/HCPCS: 96361; 96365; 96375; J2405; J3411; J3475; J7042; J7120 ==

== ENCOUNTER 2020-08-15 11:53 | Day surgery (SDC) | payer BC, OTHER | END 2020-08-15 16:20 | disposition home or self-care (01) | LOC: ATC 11:53 | DX: O21.9 Vomiting of pregnancy, unspecified (principal); Z3A.00 Weeks of gestation of pregnancy not specified; O99.519 Diseases of the respiratory system complicating pregnancy, unspecified trimester; J45.909 Unspecified asthma, uncomplicated; O99.330 Smoking (tobacco) complicating pregnancy, unspecified trimester; Z88.8 Allergy status to other drugs, medicaments and biological substances; Z91.018 Allergy to other foods | CPT/HCPCS: 96361; 96365; 96375; J2405; J3411; J3475; J7042; J7120 ==

== ENCOUNTER 2020-08-18 04:02 | Day surgery (SDC) | payer BC, OTHER | END 2020-08-18 17:40 | disposition home or self-care (01) | LOC: ATC 04:02 | DX: O21.9 Vomiting of pregnancy, unspecified (principal); O99.330 Smoking (tobacco) complicating pregnancy, unspecified trimester; F17.210 Nicotine dependence, cigarettes, uncomplicated; O99.519 Diseases of the respiratory system complicating pregnancy, unspecified trimester; J45.909 Unspecified asthma, uncomplicated; Z3A.00 Weeks of gestation of pregnancy not specified; Z88.6 Allergy status to analgesic agent; Z91.018 Allergy to other foods | CPT/HCPCS: 96361; 96365; 96375; J2405; J3411; J3475; J7042; J7120 ==

== ENCOUNTER 2020-08-21 00:20 | Day surgery (SDC) | payer BC, OTHER | END 2020-08-21 17:52 | disposition home or self-care (01) | LOC: ATC 00:20 | DX: O21.9 Vomiting of pregnancy, unspecified (principal); O34.219 Maternal care for unspecified type scar from previous cesarean delivery; O99.330 Smoking (tobacco) complicating pregnancy, unspecified trimester; F17.210 Nicotine dependence, cigarettes, uncomplicated; Z88.5 Allergy status to narcotic agent; Z91.018 Allergy to other foods; Z3A.00 Weeks of gestation of pregnancy not specified | CPT/HCPCS: 96361; 96365; 96375; J2405; J3411; J3475; J7042; J7120 ==

== ENCOUNTER 2020-08-23 00:11 | Day surgery (SDC) | payer BC, OTHER | END 2020-08-23 15:55 | disposition home or self-care (01) | LOC: ATC 00:11 | DX: O21.9 Vomiting of pregnancy, unspecified (principal); O34.219 Maternal care for unspecified type scar from previous cesarean delivery; O99.330 Smoking (tobacco) complicating pregnancy, unspecified trimester; F17.210 Nicotine dependence, cigarettes, uncomplicated; Z3A.00 Weeks of gestation of pregnancy not specified; Z88.5 Allergy status to narcotic agent; Z91.018 Allergy to other foods | CPT/HCPCS: 96361; 96365; 96375; J2405; J3411; J3475; J7042; J7120 ==

== ENCOUNTER 2020-08-25 04:17 | Day surgery (SDC) | payer BC, OTHER | END 2020-08-25 16:22 | disposition home or self-care (01) | LOC: ATC 04:17 | DX: O21.9 Vomiting of pregnancy, unspecified (principal); O99.331 Smoking (tobacco) complicating pregnancy, first trimester; O99.511 Diseases of the respiratory system complicating pregnancy, first trimester; J45.909 Unspecified asthma, uncomplicated; F17.210 Nicotine dependence, cigarettes, uncomplicated; Z3A.00 Weeks of gestation of pregnancy not specified | CPT/HCPCS: 96361; 96365; 96375; J2405; J3411; J3475; J7042; J7120 ==

== ENCOUNTER 2020-08-27 13:33 | Day surgery (SDC) | payer BC, OTHER | END 2020-08-27 23:04 | disposition home or self-care (01) | LOC: ATC 13:33 | DX: O21.9 Vomiting of pregnancy, unspecified (principal); O99.330 Smoking (tobacco) complicating pregnancy, unspecified trimester; F17.200 Nicotine dependence, unspecified, uncomplicated; Z3A.00 Weeks of gestation of pregnancy not specified; Z88.5 Allergy status to narcotic agent; Z91.018 Allergy to other foods | CPT/HCPCS: 96361; 96365; 96375; J2405; J3411; J3475; J7042; J7120 ==

== ENCOUNTER 2020-08-31 04:54 | Day surgery (SDC) | payer BC, OTHER | END 2020-08-31 15:50 | disposition home or self-care (01) | LOC: ATC 04:54 | DX: O21.9 Vomiting of pregnancy, unspecified (principal); O34.219 Maternal care for unspecified type scar from previous cesarean delivery; O99.330 Smoking (tobacco) complicating pregnancy, unspecified trimester; F17.210 Nicotine dependence, cigarettes, uncomplicated; Z88.5 Allergy status to narcotic agent; Z91.018 Allergy to other foods; Z3A.00 Weeks of gestation of pregnancy not specified | CPT/HCPCS: 96361; 96365; 96375; J2405; J3411; J3475; J7042; J7120 ==

== ENCOUNTER 2020-09-05 00:23 | Day surgery (SDC) | payer BC, OTHER | END 2020-09-05 16:27 | disposition home or self-care (01) | LOC: ATC 00:23 | DX: O21.9 Vomiting of pregnancy, unspecified (principal); O99.519 Diseases of the respiratory system complicating pregnancy, unspecified trimester; J45.909 Unspecified asthma, uncomplicated; O99.330 Smoking (tobacco) complicating pregnancy, unspecified trimester; F17.210 Nicotine dependence, cigarettes, uncomplicated; Z3A.00 Weeks of gestation of pregnancy not specified; Z88.5 Allergy status to narcotic agent; Z91.018 Allergy to other foods | CPT/HCPCS: 96361; 96365; 96375; J2405; J3411; J3475; J7042; J7120 ==

== ENCOUNTER 2020-09-07 03:10 | Day surgery (SDC) | payer BC, OTHER ==
--- NOTE | 2020-09-06 15:46 | NUR ---
NOTIFIED ELSIE KNUTSON'S NURSE THAT THE MULTIVITAMIN IS ON NATIONAL SHORTAGE AND WILL NOT BE IN THE BANANA BAGS ORDERED.
--- NOTE | 2020-09-07 15:48 | NUR ---
PT REQUESTED TO BE UNHOOKED FROM BANANA BAG EARLY. 800ML INFUSED.
== END 2020-09-07 15:49 | disposition home or self-care (01) ==
LOC: ATC 03:10
DX: O21.9 Vomiting of pregnancy, unspecified (principal); O99.330 Smoking (tobacco) complicating pregnancy, unspecified trimester; F17.210 Nicotine dependence, cigarettes, uncomplicated; O99.519 Diseases of the respiratory system complicating pregnancy, unspecified trimester; J45.909 Unspecified asthma, uncomplicated; Z3A.00 Weeks of gestation of pregnancy not specified; Z88.5 Allergy status to narcotic agent
CPT/HCPCS: 96361; 96365; 96375; J2405; J3411; J3475; J7042; J7120

== ENCOUNTER 2020-09-19 00:17 | Day surgery (SDC) | payer BC, OTHER | END 2020-09-19 15:24 | disposition home or self-care (01) | LOC: ATC 00:17 | DX: O21.9 Vomiting of pregnancy, unspecified (principal); O99.330 Smoking (tobacco) complicating pregnancy, unspecified trimester; F17.210 Nicotine dependence, cigarettes, uncomplicated; Z3A.00 Weeks of gestation of pregnancy not specified; Z88.5 Allergy status to narcotic agent; Z91.018 Allergy to other foods | CPT/HCPCS: J2405; J3411; J3475; J7042; J7120 ==

== ENCOUNTER 2020-09-21 03:55 | Day surgery (SDC) | payer BC, OTHER | END 2020-09-21 15:22 | disposition home or self-care (01) | LOC: ATC 03:55 | DX: O21.9 Vomiting of pregnancy, unspecified (principal); Z3A.00 Weeks of gestation of pregnancy not specified; O99.519 Diseases of the respiratory system complicating pregnancy, unspecified trimester; J45.909 Unspecified asthma, uncomplicated; O99.330 Smoking (tobacco) complicating pregnancy, unspecified trimester; F17.210 Nicotine dependence, cigarettes, uncomplicated; O99.340 Other mental disorders complicating pregnancy, unspecified trimester; F32.9 Major depressive disorder, single episode, unspecified; Z88.6 Allergy status to analgesic agent; Z91.018 Allergy to other foods | CPT/HCPCS: 96361; 96365; 96375; J2405; J3411; J3475; J7030; J7042; J7120 ==

== ENCOUNTER 2020-09-23 01:11 | Day surgery (SDC) | payer BC, OTHER | END 2020-09-23 11:01 | disposition home or self-care (01) | LOC: ATC 01:11 | DX: O21.9 Vomiting of pregnancy, unspecified (principal); O99.330 Smoking (tobacco) complicating pregnancy, unspecified trimester; F17.200 Nicotine dependence, unspecified, uncomplicated; O99.340 Other mental disorders complicating pregnancy, unspecified trimester; F32.9 Major depressive disorder, single episode, unspecified; O99.519 Diseases of the respiratory system complicating pregnancy, unspecified trimester; J45.909 Unspecified asthma, uncomplicated; O34.219 Maternal care for unspecified type scar from previous cesarean delivery; Z3A.00 Weeks of gestation of pregnancy not specified; Z91.018 Allergy to other foods; Z88.5 Allergy status to narcotic agent; Z87.59 Personal history of other complications of pregnancy, childbirth and the puerperium | CPT/HCPCS: J2405; J3411; J3475; J7042; J7120 ==

== ENCOUNTER 2020-09-26 00:47 | Day surgery (SDC) | payer BC, OTHER | END 2020-09-26 11:45 | disposition home or self-care (01) | LOC: ATC 00:47 | DX: O21.9 Vomiting of pregnancy, unspecified (principal); O99.330 Smoking (tobacco) complicating pregnancy, unspecified trimester; F17.210 Nicotine dependence, cigarettes, uncomplicated; Z3A.00 Weeks of gestation of pregnancy not specified; Z88.5 Allergy status to narcotic agent; Z91.018 Allergy to other foods | CPT/HCPCS: J2405; J3411; J3475; J7042; J7120 ==

== ENCOUNTER 2020-09-28 02:24 | Day surgery (SDC) | payer BC, OTHER | END 2020-09-28 15:30 | disposition home or self-care (01) | LOC: ATC 02:24 | DX: O21.9 Vomiting of pregnancy, unspecified (principal); Z3A.00 Weeks of gestation of pregnancy not specified; O99.330 Smoking (tobacco) complicating pregnancy, unspecified trimester; F17.210 Nicotine dependence, cigarettes, uncomplicated | CPT/HCPCS: 96361; 96374; J2405; J7120 ==

== ENCOUNTER 2020-10-07 01:33 | Day surgery (SDC) | payer BC, OTHER | END 2020-10-07 17:06 | disposition home or self-care (01) | LOC: ATC 01:33 | DX: O21.9 Vomiting of pregnancy, unspecified (principal); O99.330 Smoking (tobacco) complicating pregnancy, unspecified trimester; F17.210 Nicotine dependence, cigarettes, uncomplicated; Z3A.00 Weeks of gestation of pregnancy not specified; Z88.5 Allergy status to narcotic agent; Z91.018 Allergy to other foods | CPT/HCPCS: 96361; 96365; 96375; J2405; J3411; J3475; J7042; J7120 ==

== ENCOUNTER → 2020-12-27 | Outpatient (CLI) | payer BC, OTHER | LOC: LAB SHORT 14:15 | DX: Z33.1 Pregnant state, incidental (principal) | CPT/HCPCS: 87081; 87150 ==

== ENCOUNTER 2022-11-02 00:20 | Emergency (ER) | payer BC, OTHER ==
[~2022-11-02] VITALS: Ht 147.3 cm; Wt 43.1 kg
[2022-11-02 04:38] VITALS: BP 159/96
[2022-11-02] MEDS ORDERED: AMOCLA875 PO (04:59)
== END 2022-11-02 05:25 | disposition home or self-care (01) ==
LOC: ER 00:20
DX: K04.7 Periapical abscess without sinus (principal); Z91.018 Allergy to other foods; J45.909 Unspecified asthma, uncomplicated; G43.909 Migraine, unspecified, not intractable, without status migrainosus; K21.9 Gastro-esophageal reflux disease without esophagitis; F17.200 Nicotine dependence, unspecified, uncomplicated
CPT/HCPCS: 96374; 99282-25; A9270; J1885

== ENCOUNTER 2022-12-12 04:23 | Emergency (ER) | payer BC, OTHER ==
[~2022-12-12] VITALS: Ht 160 cm; Wt 49.9 kg
[~2022-12-12 04:23] MED LIST changes: +AMOCLA875 PO
[2022-12-12 05:23] LABS: BASOPHILS ABSOLUTE AUTO 0.09 K/mm3 (0.00-0.23); BASOPHILS PERCENT AUTO 1 % (0-2); EOSINOPHILS ABSOLUTE AUTO 0.04 K/mm3 (0.00-0.68); EOSINOPHILS PERCENT AUTO 0 % (0-6); Hematocrit 45.4 % (33.0-51.0); Hemoglobin 15.3 g/dL (11.5-16.0); IMMATURE GRAN ABSOLUTE AUTO 0.07 K/mm3 (0.00-0.10); IMMATURE GRAN PERCENT AUTO 0 % (0-1); LYMPHOCYTES ABSOLUTE AUTO 2.92 K/mm3 (0.84-5.20); LYMPHOCYTES PERCENT AUTO 16 % (21-46); MONOCYTES ABSOLUTE AUTO 1.28 K/mm3 (0.16-1.47); MONOCYTES PERCENT AUTO 7 % (4-13); Mean Corpuscular HGB 28.2 pg (26.0-34.0); Mean Corpuscular HGB Conc 33.7 g/dL (31.5-36.5); Mean Corpuscular Volume 84 fL (80-100); Mean Platelet Volume 10.2 fL (9.1-12.4); NEUTROPHILS PERCENT AUTO 76 % (41-73); Platelet Count 259 K/mm3 (150-400); RDW Coefficient Variation 12.7 % (11.7-14.2); RDW Standard Deviation 38.4 fL (35.1-46.3); Red Blood Cell Count 5.43 M/mm3 (3.80-5.20)
[2022-12-12 05:42] LABS: Albumin, Blood 3.8 g/dL (3.4-5.0); Albumin/Globulin Ratio 1.1 (0.8-1.8); Bilirubin, Total 0.3 mg/dL (0.1-1.0); Bun/Creatinine Ratio 16.1 (12.0-20.0); Calcium, Blood 9.4 mg/dL (8.5-10.1); Creatinine, Blood 0.93 mg/dL (0.40-1.00); Globulin, Blood 3.4 g/dL (2.2-4.0); Potassium, Blood 3.6 mmol/L (3.5-5.5); Total Protein, Blood 7.2 g/dL (6.4-8.2)
[2022-12-12 07:22] LABS: Source, Urine Clean Catch
[2022-12-12 07:28] LABS: Bilirubin, Urine Neg (Neg); Blood, Urine 3+ (Neg); Glucose Qualitative, Urine Neg (Neg); Ketones, Urine 3+ (Neg); Leukocyte Esterase, Urine Neg (Neg); Nitrite, Urine Neg (Neg); Protein, Urine Neg (Neg); Specific Gravity, Urine 1.015 (1.003-1.022); Urobilinogen, Urine NORM (Normal)
[2022-12-12 07:39] LABS: Appearance, Urine Hazy (Clear); Bacteria Not Seen /hpf; Color, Urine Yellow (P-Yellow); Squamous Epithelial Cells Few /hpf (Few); White Blood Cells, Urine Not Seen /hpf (0-5)
[2022-12-12] MEDS ORDERED: OXYACE7.5T PO (09:22)
[2022-12-12] MEDS ORDERED: TAMS.4ER PO (09:22)
[2022-12-12 09:39] VITALS: BP 122/89
== END 2022-12-12 09:40 | disposition home or self-care (01) ==
LOC: ER 04:23
PROVIDERS: Emergency Medicine
DX: N13.2 Hydronephrosis with renal and ureteral calculous obstruction (principal); E86.0 Dehydration; D72.829 Elevated white blood cell count, unspecified; F17.200 Nicotine dependence, unspecified, uncomplicated; Z91.018 Allergy to other foods
CPT/HCPCS: 74176; 76856; 80053; 81001; 84703; 85025; 96360; 99284-25; A9270; J7030

== ENCOUNTER 2023-01-06 17:27 | Emergency (ER) | payer BC, OTHER ==
[~2023-01-06] VITALS: Ht 144.8 cm; Wt 37.8 kg
[~2023-01-06 17:27] MED LIST changes: +OXYACE7.5T PO; +TAMS.4ER PO
[2023-01-06 18:04] LABS: Source, Urine Clean Catch
[2023-01-06 18:11] LABS: Bilirubin, Urine Neg (Neg); Blood, Urine 1+ (Neg); Glucose Qualitative, Urine Neg (Neg); Ketones, Urine Neg (Neg); Leukocyte Esterase, Urine 3+ (Neg); Nitrite, Urine Neg (Neg); Protein, Urine Neg (Neg); Urobilinogen, Urine NORM (Normal)
[2023-01-06 18:22] LABS: Appearance, Urine Hazy (Clear); Color, Urine Pale Yellow (P-Yellow)
[2023-01-06 18:34] LABS: Bacteria Mod /hpf; Squamous Epithelial Cells Mod /hpf (Few)
[2023-01-06 18:41] LABS: BASOPHILS ABSOLUTE AUTO 0.08 K/mm3 (0.00-0.23); BASOPHILS PERCENT AUTO 1 % (0-2); EOSINOPHILS ABSOLUTE AUTO 0.06 K/mm3 (0.00-0.68); EOSINOPHILS PERCENT AUTO 1 % (0-6); Hematocrit 45.5 % (33.0-51.0); IMMATURE GRAN ABSOLUTE AUTO 0.03 K/mm3 (0.00-0.10); IMMATURE GRAN PERCENT AUTO 0 % (0-1); LYMPHOCYTES ABSOLUTE AUTO 3.16 K/mm3 (0.84-5.20); LYMPHOCYTES PERCENT AUTO 33 % (21-46); MONOCYTES ABSOLUTE AUTO 0.69 K/mm3 (0.16-1.47); MONOCYTES PERCENT AUTO 7 % (4-13); Mean Corpuscular HGB 27.7 pg (26.0-34.0); Mean Corpuscular Volume 84 fL (80-100); Mean Platelet Volume 9.5 fL (9.1-12.4); NEUTROPHILS ABSOLUTE AUTO 5.65 K/mm3 (1.96-9.15); NEUTROPHILS PERCENT AUTO 59 % (41-73); Platelet Count 294 K/mm3 (150-400); RDW Coefficient Variation 12.6 % (11.7-14.2); RDW Standard Deviation 38.4 fL (35.1-46.3); Red Blood Cell Count 5.42 M/mm3 (3.80-5.20); White Blood Cell Count 9.67 K/mm3 (4.00-11.30)
[2023-01-06 19:05] LABS: Albumin, Blood 3.8 g/dL (3.4-5.0); Albumin/Globulin Ratio 1.1 (0.8-1.8); Bilirubin, Total 0.2 mg/dL (0.1-1.0); Bun/Creatinine Ratio 7.5 (12.0-20.0); Calcium, Blood 9.3 mg/dL (8.5-10.1); Creatinine, Blood 0.8 mg/dL (0.40-1.00); Globulin, Blood 3.5 g/dL (2.2-4.0); Potassium, Blood 3.6 mmol/L (3.5-5.5); Total Protein, Blood 7.3 g/dL (6.4-8.2)
[2023-01-06 20:37] LABS: Source, Urine Clean Catch
[2023-01-06 20:53] LABS: Bilirubin, Urine Neg (Neg); Blood, Urine Neg (Neg); Glucose Qualitative, Urine Neg (Neg); Ketones, Urine Neg (Neg); Leukocyte Esterase, Urine 1+ (Neg); Nitrite, Urine Neg (Neg); Protein, Urine Neg (Neg); Specific Gravity, Urine 1.015 (1.003-1.022); Urobilinogen, Urine NORM (Normal)
[2023-01-06 21:03] LABS: Appearance, Urine Clear (Clear); Bacteria Rare /hpf; Color, Urine Yellow (P-Yellow); Red Blood Cells, Urine Not Seen /hpf (0-2); Squamous Epithelial Cells Few /hpf (Few)
[2023-01-06 21:34] LABS: G. vaginalis (DNA Probe) Positive (NEGATIVE); T. vaginalis (DNA Probe) Negative (NEGATIVE)
[2023-01-06 21:35] LABS: Candida species (DNA Probe) Negative (NEGATIVE)
[2023-01-06] MEDS ORDERED: METR500 PO (22:25)
[2023-01-06] MEDS ORDERED: ONDA4ODT MM (22:28)
[2023-01-06] MEDS ORDERED: BENZ100A PO (22:29)
[2023-01-06] MEDS ORDERED: IBUP600 PO (22:29)
[2023-01-06 23:10] VITALS: BP 120/86
[2023-01-09 02:08] LABS: CHLAMYDIA TRACHOMATIS, NAA Negative (Negative)
== END 2023-01-06 23:15 | disposition home or self-care (01) ==
LOC: ER 17:27
PROVIDERS: Student in an Organized Health Care Education/Training Program
DX: J20.9 Acute bronchitis, unspecified (principal); N76.0 Acute vaginitis; B96.89 Other specified bacterial agents as the cause of diseases classified elsewhere; N20.0 Calculus of kidney; N83.202 Unspecified ovarian cyst, left side; R10.31 Right lower quadrant pain; R10.32 Left lower quadrant pain; J45.909 Unspecified asthma, uncomplicated; F17.210 Nicotine dependence, cigarettes, uncomplicated; F17.290 Nicotine dependence, other tobacco product, uncomplicated; Z91.018 Allergy to other foods
CPT/HCPCS: 71046; 76770; 76856; 80053; 81001; 81025; 83690; 85025; 87086; 87480; 87491; 87510; 87591; 87660; 96374; 96375; 99284-25; A9270; J1790; J1885; J2405

== ENCOUNTER 2023-02-19 19:35 | Emergency (ER) | payer OTHER, BC ==
[~2023-02-19] VITALS: Ht 142.2 cm; Wt 38.1 kg
[~2023-02-19 19:35] MED LIST changes: +BENZ100A PO; +IBUP600 PO; +METR500 PO
[2023-02-19 19:59] VITALS: BP 141/89
[2023-02-19 21:23] LABS: BASOPHILS ABSOLUTE AUTO 0.08 K/mm3 (0.00-0.23); BASOPHILS PERCENT AUTO 1 % (0-2); EOSINOPHILS ABSOLUTE AUTO 0.09 K/mm3 (0.00-0.68); EOSINOPHILS PERCENT AUTO 1 % (0-6); Hematocrit 44.1 % (33.0-51.0); Hemoglobin 14.3 g/dL (11.5-16.0); IMMATURE GRAN ABSOLUTE AUTO 0.02 K/mm3 (0.00-0.10); IMMATURE GRAN PERCENT AUTO 0 % (0-1); LYMPHOCYTES ABSOLUTE AUTO 2.99 K/mm3 (0.84-5.20); LYMPHOCYTES PERCENT AUTO 33 % (21-46); MONOCYTES ABSOLUTE AUTO 0.55 K/mm3 (0.16-1.47); MONOCYTES PERCENT AUTO 6 % (4-13); Mean Corpuscular HGB 27.8 pg (26.0-34.0); Mean Corpuscular HGB Conc 32.4 g/dL (31.5-36.5); Mean Corpuscular Volume 86 fL (80-100); Mean Platelet Volume 9.4 fL (9.1-12.4); NEUTROPHILS ABSOLUTE AUTO 5.29 K/mm3 (1.96-9.15); NEUTROPHILS PERCENT AUTO 59 % (41-73); Platelet Count 239 K/mm3 (150-400); RDW Standard Deviation 40.6 fL (35.1-46.3); Red Blood Cell Count 5.15 M/mm3 (3.80-5.20); White Blood Cell Count 9.02 K/mm3 (4.00-11.30)
[2023-02-19] MEDS ORDERED: LIDO700A20 TOP (22:36)
[2023-02-19] MEDS ORDERED: ONDA4 PO (22:36)
== END 2023-02-19 22:46 | disposition home or self-care (01) ==
LOC: ER 19:35
PROVIDERS: Student in an Organized Health Care Education/Training Program
DX: S06.0X0A Concussion without loss of consciousness, initial encounter (principal); V49.88XA Car occupant (driver) (passenger) injured in other specified transport accidents, initial encounter; R14.0 Abdominal distension (gaseous); J45.909 Unspecified asthma, uncomplicated; F17.210 Nicotine dependence, cigarettes, uncomplicated; F17.290 Nicotine dependence, other tobacco product, uncomplicated; Z91.018 Allergy to other foods
CPT/HCPCS: 74177; 85025; 86850; 86900; 86901; 96374; 96375; 99284-25; A9270; J1885; J2405; Q9967

== ENCOUNTER 2023-05-05 16:41 | Emergency (ER) | payer BC, OTHER ==
[~2023-05-05] VITALS: Ht 144.8 cm; Wt 45.4 kg
[~2023-05-05 16:41] MED LIST changes: +LIDO700A20 TOP; +ONDA4 PO
[2023-05-05] MEDS ORDERED: Acetaminophen 325 MG TABLET PO ONE (18:10)
[2023-05-05] MEDS ORDERED: Ibuprofen 400 MG Tab PO ONE (18:15)
[2023-05-05] MEDS ORDERED: RX Prepack 6 Tabs Oxycodone 5mg UD ONE (18:15)
[2023-05-05 19:53] VITALS: BP 148/76
== END 2023-05-05 18:40 | disposition home or self-care (01) ==
LOC: ER 16:41
DX: K06.8 Other specified disorders of gingiva and edentulous alveolar ridge (principal); K08.89 Other specified disorders of teeth and supporting structures; F17.290 Nicotine dependence, other tobacco product, uncomplicated; F17.210 Nicotine dependence, cigarettes, uncomplicated; Z88.5 Allergy status to narcotic agent
CPT/HCPCS: 99282; A9270

== ENCOUNTER → 2023-11-13 | Outpatient (CLI) | payer OTHER ==
[2023-11-13 12:28] LABS: Candida Group, PCR NOT DETECTED (NOT DETECT); Candida glabrata-krusei, PCR NOT DETECTED (NOT DETECT)
[2023-11-13 12:41] LABS: Bacterial Vaginosis PCR Positive (NEGATIVE)
== END ==
LOC: LAB 09:46 → LAB SHORT 09:46
PROVIDERS: Nurse Practitioner Family
DX: R10.84 Generalized abdominal pain (principal)
CPT/HCPCS: 87086; 87481; 87661; 87801

== ENCOUNTER 2023-12-27 19:10 | Emergency (ER) | payer OTHER ==
[~2023-12-27] VITALS: Ht 142.2 cm; Wt 37.2 kg
[2023-12-27 20:23] LABS: BASOPHILS ABSOLUTE AUTO 0.07 K/mm3 (0.00-0.23); BASOPHILS PERCENT AUTO 1 % (0-2); EOSINOPHILS ABSOLUTE AUTO 0.08 K/mm3 (0.00-0.68); EOSINOPHILS PERCENT AUTO 1 % (0-6); Hematocrit 46.7 % (33.0-51.0); Hemoglobin 15.1 g/dL (11.5-16.0); IMMATURE GRAN ABSOLUTE AUTO 0.03 K/mm3 (0.00-0.10); IMMATURE GRAN PERCENT AUTO 0 % (0-1); LYMPHOCYTES ABSOLUTE AUTO 3.17 K/mm3 (0.84-5.20); LYMPHOCYTES PERCENT AUTO 31 % (21-46); MONOCYTES ABSOLUTE AUTO 0.64 K/mm3 (0.16-1.47); MONOCYTES PERCENT AUTO 6 % (4-13); Mean Corpuscular HGB 28.1 pg (26.0-34.0); Mean Corpuscular HGB Conc 32.3 g/dL (31.5-36.5); Mean Corpuscular Volume 87 fL (80-100); Mean Platelet Volume 9.8 fL (9.1-12.4); NEUTROPHILS ABSOLUTE AUTO 6.12 K/mm3 (1.96-9.15); NEUTROPHILS PERCENT AUTO 61 % (41-73); Platelet Count 266 K/mm3 (150-400); RDW Standard Deviation 40.8 fL (35.1-46.3); Red Blood Cell Count 5.37 M/mm3 (3.80-5.20); White Blood Cell Count 10.11 K/mm3 (4.00-11.30)
[2023-12-27 20:45] LABS: Albumin, Blood 3.4 g/dL (3.4-5.0); Bilirubin, Total 0.3 mg/dL (0.1-1.0); Bun/Creatinine Ratio 16.6 (12.0-20.0); Creatinine, Blood 0.66 mg/dL (0.40-1.00); Globulin, Blood 3.4 g/dL (2.2-4.0); Potassium, Blood 3.9 mmol/L (3.5-5.5); Total Protein, Blood 6.8 g/dL (6.4-8.2)
[2023-12-28] VITALS: BP 110/91
== END 2023-12-28 00:26 | disposition home or self-care (01) ==
LOC: ER 19:10
PROVIDERS: Student in an Organized Health Care Education/Training Program
DX: R25.1 Tremor, unspecified (principal); J45.909 Unspecified asthma, uncomplicated; K21.9 Gastro-esophageal reflux disease without esophagitis; G43.909 Migraine, unspecified, not intractable, without status migrainosus; F17.290 Nicotine dependence, other tobacco product, uncomplicated; Z79.899 Other long term (current) drug therapy; Z91.018 Allergy to other foods; Z88.5 Allergy status to narcotic agent
CPT/HCPCS: 70450; 80053; 85025; 99284-25

== ENCOUNTER → 2024-01-14 | Outpatient (CLI) | payer OTHER ==
[2024-01-15 12:34] LABS: Bacterial Vaginosis PCR Negative (NEGATIVE); Candida Group, PCR NOT DETECTED (NOT DETECT); Candida glabrata-krusei, PCR NOT DETECTED (NOT DETECT)
== END ==
LOC: LAB SHORT 15:04 → LAB 15:04
PROVIDERS: Nurse Practitioner Family
DX: N76.0 Acute vaginitis (principal)
CPT/HCPCS: 87481; 87661; 87801

== ENCOUNTER 2024-01-22 01:28 | Emergency (ER) | payer OTHER ==
[~2024-01-22] VITALS: Ht 144.8 cm; Wt 37.2 kg
[2024-01-22 02:06] LABS: BASOPHILS ABSOLUTE AUTO 0.11 K/mm3 (0.00-0.23); BASOPHILS PERCENT AUTO 1 % (0-2); EOSINOPHILS ABSOLUTE AUTO 0.23 K/mm3 (0.00-0.68); EOSINOPHILS PERCENT AUTO 2 % (0-6); Hematocrit 40.7 % (33.0-51.0); Hemoglobin 13.6 g/dL (11.5-16.0); IMMATURE GRAN ABSOLUTE AUTO 0.05 K/mm3 (0.00-0.10); IMMATURE GRAN PERCENT AUTO 1 % (0-1); LYMPHOCYTES ABSOLUTE AUTO 3.74 K/mm3 (0.84-5.20); LYMPHOCYTES PERCENT AUTO 35 % (21-46); MONOCYTES ABSOLUTE AUTO 0.62 K/mm3 (0.16-1.47); MONOCYTES PERCENT AUTO 6 % (4-13); Mean Corpuscular HGB 28.3 pg (26.0-34.0); Mean Corpuscular HGB Conc 33.4 g/dL (31.5-36.5); Mean Corpuscular Volume 85 fL (80-100); Mean Platelet Volume 10.3 fL (9.1-12.4); NEUTROPHILS ABSOLUTE AUTO 6.02 K/mm3 (1.96-9.15); NEUTROPHILS PERCENT AUTO 56 % (41-73); Platelet Count 284 K/mm3 (150-400); RDW Coefficient Variation 12.8 % (11.7-14.2); RDW Standard Deviation 39.4 fL (35.1-46.3); White Blood Cell Count 10.77 K/mm3 (4.00-11.30)
[2024-01-22 02:36] LABS: Albumin, Blood 3.2 g/dL (3.4-5.0); Bilirubin, Total 0.1 mg/dL (0.1-1.0); Calcium, Blood 8.4 mg/dL (8.5-10.1); Creatinine, Blood 0.64 mg/dL (0.40-1.00); Globulin, Blood 3.3 g/dL (2.2-4.0); Potassium, Blood 3.8 mmol/L (3.5-5.5); Total Protein, Blood 6.5 g/dL (6.4-8.2)
[2024-01-22 02:50] VITALS: BP 143/93
[2024-01-22] MEDS ORDERED: FLUO10 PO (02:57)
[2024-01-22] MEDS ORDERED: RX Prepack Albuterol 1 PREPACK/6.7 GM INH UD ONE (04:05)
[2024-01-22] MEDS ORDERED: PredniSONE 20 MG Tab PO ONE (04:05)
[2024-01-22] MEDS ORDERED: Ipratropium/Albuterol SulF 2.5-0.5MG/3 ML Amp INH ONE (04:05)
[2024-01-22] MEDS ORDERED: DELTASONE20 MG PO (04:07)
== END 2024-01-22 04:50 | disposition home or self-care (01) ==
LOC: ER 01:28
PROVIDERS: Emergency Medicine
DX: J45.901 Unspecified asthma with (acute) exacerbation (principal); K21.9 Gastro-esophageal reflux disease without esophagitis; G43.909 Migraine, unspecified, not intractable, without status migrainosus; F17.290 Nicotine dependence, other tobacco product, uncomplicated; Z76.0 Encounter for issue of repeat prescription; Z79.52 Long term (current) use of systemic steroids; Z79.899 Other long term (current) drug therapy; Z91.018 Allergy to other foods; Z88.5 Allergy status to narcotic agent
CPT/HCPCS: 71046; 80053; 84484; 85025; 93005; 93010; 94640; 94664; 99285-25; A9270; J7512

== ENCOUNTER 2024-02-19 11:52 | Emergency (ER) | payer OTHER ==
[~2024-02-19] VITALS: Ht 162.6 cm; Wt 54.4 kg
[~2024-02-19 11:52] MED LIST changes: +DELTASONE20 MG PO; +FLUO10 PO
[2024-02-19 12:41] LABS: Source, Urine Clean Catch
[2024-02-19 13:00] LABS: BASOPHILS ABSOLUTE AUTO 0.09 K/mm3 (0.00-0.23); BASOPHILS PERCENT AUTO 1 % (0-2); EOSINOPHILS ABSOLUTE AUTO 0.19 K/mm3 (0.00-0.68); EOSINOPHILS PERCENT AUTO 2 % (0-6); Hematocrit 47.6 % (33.0-51.0); Hemoglobin 15.3 g/dL (11.5-16.0); IMMATURE GRAN ABSOLUTE AUTO 0.03 K/mm3 (0.00-0.10); IMMATURE GRAN PERCENT AUTO 0 % (0-1); LYMPHOCYTES ABSOLUTE AUTO 2.43 K/mm3 (0.84-5.20); LYMPHOCYTES PERCENT AUTO 29 % (21-46); MONOCYTES PERCENT AUTO 7 % (4-13); Mean Corpuscular HGB Conc 32.1 g/dL (31.5-36.5); Mean Corpuscular Volume 87 fL (80-100); Mean Platelet Volume 10.1 fL (9.1-12.4); NEUTROPHILS PERCENT AUTO 61 % (41-73); Platelet Count 251 K/mm3 (150-400); RDW Coefficient Variation 13.2 % (11.7-14.2); RDW Standard Deviation 41.8 fL (35.1-46.3); Red Blood Cell Count 5.46 M/mm3 (3.80-5.20); White Blood Cell Count 8.54 K/mm3 (4.00-11.30)
[2024-02-19 13:09] LABS: Albumin, Blood 3.6 g/dL (3.4-5.0); Bilirubin, Total 0.4 mg/dL (0.1-1.0); Bun/Creatinine Ratio 9.9 (12.0-20.0); Calcium, Blood 9.3 mg/dL (8.5-10.1); Creatinine, Blood 0.71 mg/dL (0.40-1.00); Globulin, Blood 3.7 g/dL (2.2-4.0); Potassium, Blood 3.5 mmol/L (3.5-5.5); Total Protein, Blood 7.3 g/dL (6.4-8.2)
[2024-02-19 13:36] LABS: Bilirubin, Urine Neg (Neg); Blood, Urine 5+ (Neg); Color, Urine Yellow (P-Yellow); Glucose Qualitative, Urine Neg (Neg); Ketones, Urine Neg (Neg); Leukocyte Esterase, Urine 1+ (Neg); Nitrite, Urine Neg (Neg); Protein, Urine 1+ (Neg); Specific Gravity, Urine 1.005 (1.003-1.022); Urobilinogen, Urine NORM (Normal)
[2024-02-19] MEDS ORDERED: NS 1,000 ML IV SCH (13:45)
[2024-02-19] MEDS ORDERED: Tamsulosin HCl 0.4 MG Cap PO ONE (13:45)
[2024-02-19 14:06] LABS: Appearance, Urine Hazy (Clear); Bacteria Mod /hpf; Mucus Light (0-Heavy); Red Blood Cells, Urine 0-2 /hpf (0-2); Squamous Epithelial Cells Mod /hpf (Few)
[2024-02-19 16:00] VITALS: BP 129/86
== END 2024-02-19 16:00 | disposition home or self-care (01) ==
LOC: ER 11:52
PROVIDERS: Physician Assistant
DX: N20.0 Calculus of kidney (principal); F17.210 Nicotine dependence, cigarettes, uncomplicated; Z91.018 Allergy to other foods; Z88.5 Allergy status to narcotic agent
CPT/HCPCS: 74177; 80053; 81001; 85025; 87086; 99284-25; A9270; J7030; Q9967

== ENCOUNTER 2024-04-14 23:42 | Emergency (ER) | payer OTHER ==
[~2024-04-14] VITALS: Ht 142.2 cm; Wt 38.6 kg
[2024-04-14 23:46] VITALS: BP 153/99
[2024-04-14] MEDS ORDERED: NS 1,000 ML IV SCH (23:50)
[2024-04-14] MEDS ORDERED: Ondansetron HCl 2 MG / ML 2ML Vial IV ONE (23:50)
[2024-04-15] MEDS ORDERED: METO10 PO (00:37)
[2024-04-15 00:59] LABS: CORONAVIRUS COVID-19 AG Negative (NEGATIVE); INFLUENZA A AG Negative (NEGATIVE); INFLUENZA B AG Negative (NEGATIVE)
== END 2024-04-15 00:44 | disposition home or self-care (01) ==
LOC: ER 23:42
PROVIDERS: Physician Assistant
DX: E86.0 Dehydration (principal); F17.210 Nicotine dependence, cigarettes, uncomplicated; Z91.018 Allergy to other foods; Z88.5 Allergy status to narcotic agent
CPT/HCPCS: 87428-QW; 96374; 99284-25; J2405; J7030

== ENCOUNTER 2024-06-22 20:35 | Emergency (ER) | payer OTHER ==
[~2024-06-22] VITALS: Ht 144.8 cm; Wt 37.2 kg
[~2024-06-22 20:35] MED LIST changes: +METO10 PO
[2024-06-22 21:07] VITALS: BP 169/117
[2024-06-22 21:41] LABS: Source, Urine Clean Catch
[2024-06-22 21:42] LABS: BASOPHILS ABSOLUTE AUTO 0.08 K/mm3 (0.00-0.23); BASOPHILS PERCENT AUTO 1 % (0-2); EOSINOPHILS ABSOLUTE AUTO 0.12 K/mm3 (0.00-0.68); EOSINOPHILS PERCENT AUTO 1 % (0-6); Hematocrit 45.1 % (33.0-51.0); Hemoglobin 14.8 g/dL (11.5-16.0); IMMATURE GRAN ABSOLUTE AUTO 0.03 K/mm3 (0.00-0.10); IMMATURE GRAN PERCENT AUTO 0 % (0-1); LYMPHOCYTES ABSOLUTE AUTO 2.48 K/mm3 (0.84-5.20); LYMPHOCYTES PERCENT AUTO 25 % (21-46); MONOCYTES ABSOLUTE AUTO 0.55 K/mm3 (0.16-1.47); MONOCYTES PERCENT AUTO 6 % (4-13); Mean Corpuscular HGB 28.5 pg (26.0-34.0); Mean Corpuscular HGB Conc 32.8 g/dL (31.5-36.5); Mean Corpuscular Volume 87 fL (80-100); NEUTROPHILS ABSOLUTE AUTO 6.52 K/mm3 (1.96-9.15); NEUTROPHILS PERCENT AUTO 67 % (41-73); Platelet Count 240 K/mm3 (150-400); RDW Coefficient Variation 12.9 % (11.7-14.2); White Blood Cell Count 9.78 K/mm3 (4.00-11.30)
[2024-06-22 21:48] LABS: Bilirubin, Urine Neg (Neg); Blood, Urine 5+ (Neg); Glucose Qualitative, Urine Neg (Neg); Ketones, Urine Neg (Neg); Leukocyte Esterase, Urine 2+ (Neg); Nitrite, Urine Neg (Neg); Protein, Urine 2+ (Neg); Urobilinogen, Urine NORM (Normal); pH, Urine 6.5 (5.0-8.0)
[2024-06-22 22:03] LABS: Appearance, Urine Cloudy (Clear); Color, Urine Yellow (P-Yellow)
[2024-06-22 22:03] LABS: Albumin, Blood 3.6 g/dL (3.4-5.0); Albumin/Globulin Ratio 1.1 (0.8-1.8); Bilirubin, Total 0.2 mg/dL (0.1-1.0); Bun/Creatinine Ratio 18.8 (12.0-20.0); Calcium, Blood 8.9 mg/dL (8.5-10.1); Creatinine, Blood 0.64 mg/dL (0.40-1.00); Globulin, Blood 3.3 g/dL (2.2-4.0); Potassium, Blood 3.6 mmol/L (3.5-5.5); Total Protein, Blood 6.9 g/dL (6.4-8.2)
[2024-06-22 22:04] LABS: Amorphous Light (0-Heavy); Bacteria Mod /hpf; Mucus Light (0-Heavy); Red Blood Cells, Urine TNTC /hpf (0-2); Squamous Epithelial Cells Few /hpf (Few)
[2024-06-22] MEDS ORDERED: NS 1,000 ML IV SCH (22:40)
[2024-06-22] MEDS ORDERED: CefTRIAXone Sodium 1,000 MG in NS 50 ML IV ONE (22:40)
[2024-06-22 22:49] LABS: Magnesium, Blood 1.9 mg/dL (1.6-2.4); Phosphorus, Blood 3.3 mg/dL (2.5-4.9)
[2024-06-22] MEDS ORDERED: CEPH500 PO (23:39)
== END 2024-06-23 00:18 | disposition home or self-care (01) ==
LOC: ER 20:35
PROVIDERS: Student in an Organized Health Care Education/Training Program
DX: N39.0 Urinary tract infection, site not specified (principal); E86.0 Dehydration; N94.6 Dysmenorrhea, unspecified; R20.2 Paresthesia of skin; E28.2 Polycystic ovarian syndrome; N80.9 Endometriosis, unspecified; J45.990 Exercise induced bronchospasm; F17.210 Nicotine dependence, cigarettes, uncomplicated; Z91.018 Allergy to other foods; Z88.6 Allergy status to analgesic agent; Z59.89 Other problems related to housing and economic circumstances
CPT/HCPCS: 76830; 76856; 80053; 81001; 83735; 84100; 84703; 85025; 87086; 96365; 99284-25; J0696; J7030

== ENCOUNTER 2024-07-07 20:22 | Emergency (ER) | payer OTHER ==
[~2024-07-07] VITALS: Ht 154.9 cm; Wt 40.8 kg
[2024-07-07 20:25] VITALS: BP 168/98
[2024-07-07 20:47] LABS: BASOPHILS ABSOLUTE AUTO 0.08 K/mm3 (0.00-0.23); BASOPHILS PERCENT AUTO 1 % (0-2); EOSINOPHILS PERCENT AUTO 1 % (0-6); Hemoglobin 14.7 g/dL (11.5-16.0); IMMATURE GRAN ABSOLUTE AUTO 0.02 K/mm3 (0.00-0.10); IMMATURE GRAN PERCENT AUTO 0 % (0-1); LYMPHOCYTES ABSOLUTE AUTO 3.74 K/mm3 (0.84-5.20); LYMPHOCYTES PERCENT AUTO 32 % (21-46); MONOCYTES ABSOLUTE AUTO 0.82 K/mm3 (0.16-1.47); MONOCYTES PERCENT AUTO 7 % (4-13); Mean Corpuscular HGB 28.3 pg (26.0-34.0); Mean Corpuscular HGB Conc 33.4 g/dL (31.5-36.5); Mean Corpuscular Volume 85 fL (80-100); Mean Platelet Volume 10.1 fL (9.1-12.4); NEUTROPHILS ABSOLUTE AUTO 6.84 K/mm3 (1.96-9.15); NEUTROPHILS PERCENT AUTO 59 % (41-73); Platelet Count 239 K/mm3 (150-400); RDW Coefficient Variation 12.9 % (11.7-14.2); RDW Standard Deviation 40.2 fL (35.1-46.3); Red Blood Cell Count 5.19 M/mm3 (3.80-5.20)
[2024-07-07 21:05] LABS: Albumin, Blood 3.6 g/dL (3.4-5.0); Albumin/Globulin Ratio 1.1 (0.8-1.8); Bilirubin, Total 0.3 mg/dL (0.1-1.0); Bun/Creatinine Ratio 19.2 (12.0-20.0); Calcium, Blood 8.9 mg/dL (8.5-10.1); Creatinine, Blood 0.63 mg/dL (0.40-1.00); Globulin, Blood 3.4 g/dL (2.2-4.0); Potassium, Blood 3.7 mmol/L (3.5-5.5)
[2024-07-07 22:34] LABS: Source, Urine Clean Catch
[2024-07-07 22:39] LABS: Bilirubin, Urine Neg (Neg); Blood, Urine 2+ (Neg); Glucose Qualitative, Urine Neg (Neg); Ketones, Urine 1+ (Neg); Leukocyte Esterase, Urine 3+ (Neg); Nitrite, Urine Neg (Neg); Protein, Urine 2+ (Neg); Specific Gravity, Urine 1.025 (1.003-1.022); Urobilinogen, Urine 1+ (Normal)
[2024-07-07 22:53] LABS: Appearance, Urine Hazy (Clear); Color, Urine Yellow (P-Yellow)
[2024-07-07 22:54] LABS: Amorphous Light (0-Heavy); Bacteria Mod /hpf; Mucus Light (0-Heavy); Red Blood Cells, Urine 0-2 /hpf (0-2); Squamous Epithelial Cells Mod /hpf (Few); White Blood Cells, Urine 50-100 /hpf (0-5)
[2024-07-07] MEDS ORDERED: Trimethoprim/Sulfamethoxazole DS Tab PO ONE (23:35)
[2024-07-07] MEDS ORDERED: SULTRIDS PO (23:35)
[2024-07-12] MEDS ORDERED: CEPH500 PO (11:09)
[2024-07-12] MEDS ORDERED: SULTRIDS PO (11:09)
== END 2024-07-07 23:50 | disposition home or self-care (01) ==
LOC: ER 20:22
PROVIDERS: Student in an Organized Health Care Education/Training Program
DX: N39.0 Urinary tract infection, site not specified (principal); E86.0 Dehydration; D72.829 Elevated white blood cell count, unspecified; F17.210 Nicotine dependence, cigarettes, uncomplicated; Z88.8 Allergy status to other drugs, medicaments and biological substances; Z91.018 Allergy to other foods; Z87.42 Personal history of other diseases of the female genital tract
CPT/HCPCS: 80053; 81001; 81025; 85025; 87086; 99284; A9270